=== PATIENT | male | born 1960 | race African-American/Black ===

== ENCOUNTER 2019-02-19 13:39 | Inpatient (IN) ==
[~2019-02-19 13:39] MED LIST: *HR* Etomidate 20 MG/10 ML AMPUL IVP ONE; *HR* Rocuronium Bromide 100 MG/10 ML VIAL IVC ONE
[2019-02-19] MEDS ORDERED: 0.9 % Sodium Chloride 2,000 ML ONE (13:42)
[2019-02-19] MEDS ORDERED: 0.9 % Sodium Chloride 1,000 ML IVC ONE ×3 (13:44→22:21)
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
[2019-02-19] MEDS: 0.9 % Sodium Chloride 2,000 ML IVC ONE ×2 (13:52→14:48)
[2019-02-19 14:03] LABS: ABG Base Excess -6 mEq/L (-2 to 3); ABG HCO3 20 mEq/L (21-27); ABG Oxygen Saturation 99 % (95-98); ABG PCO2 39 mmHg (35-45); ABG PH 7.31 pH Units (7.32-7.45); ABG PO2 170 mmHg (85-104); ABG TCO2 21 mEq/L (20-26)
[2019-02-19 14:11] LABS: Hematocrit 48.9 % (37.5-50.1); Hemoglobin 15.9 g/dL (12.9-16.9); Immature Granulocytes % 0.5 % (0-4); Lymphocytes % 7.7 %; Mean Corpuscular HGB Conc 32.5 g/dL (31.6-35.5); Mean Corpuscular Hemoglobin 31.6 pg (28.0-33.3); Mean Corpuscular Volume 97.2 fL (83.0-100.0); Mean Platelet Volume 10.5 fL (9.4-12.4); Monocytes % 4.9 %; Platelet Count 175 K/mcL (140-400); Red Blood Count 5.03 M/mcL (4.19-5.50); Red Cell Distribution Width 14.3 % (11.5-14.5); Segmented Neutrophils % 86.7 %; White Blood Count 12.9 K/mcL (4.3-11.1)
[2019-02-19 14:12] LABS: Basophils % 0.2 %; Monocytes # 0.6 K/mcL (0.0-1.3); Neutrophils # 11.2 K/mcL (1.6-8.9)
[2019-02-19 14:17] LABS: INR 1.4; Prothrombin Time 15.8 Seconds (9.4-12.1)
[2019-02-19] MEDS ORDERED: Acetaminophen 650 MG RECTAL SUPP RC ONE (14:18)
[2019-02-19 14:19] LABS: Activated Partial Thrombo Time 33.6 Seconds (26.0-36.0)
[2019-02-19] MEDS ORDERED: Thiamine (B-1) 100 MG, Folic Acid 1 MG, MVI, adult with vitamin K 10 ML in 0.9 % Sodi... IVPB ONE (14:20)
[2019-02-19] MEDS ORDERED: Piperacillin/Tazobactam 3.375 GM in Water for inj. (sterile) 20 ML IVP ONE (14:25)
[2019-02-19] MEDS ORDERED: 0.9 % Sodium Chloride 1,000 ML ONE (14:26)
[2019-02-19] MEDS ORDERED: Piperacillin/Tazobactam 3.375 GM in 0.9 % Sodium Chloride Mini Bag 100 ML IVPB ONE (14:28)
[2019-02-19] MEDS ORDERED: D5% in Water 250 ML ONE (14:33)
[2019-02-19] MEDS ORDERED: *HR* Norepinephrine 4 MG/4 ML VIAL IVC ONE (14:33)
[2019-02-19 14:35] LABS: Troponin I 0.77 ng/mL (< 0.04)
[2019-02-19] MEDS ORDERED: *HR* Heparin 5,000 UNIT/ML VIAL IVP PRN ×2 (14:53)
[2019-02-19] MEDS ORDERED: *HR* Heparin 5,000 UNIT/ML VIAL IVP ONE (14:53)
[2019-02-19 15:04] LABS: Sodium 138 mEq/L (136-145)
[2019-02-19 15:05] LABS: Alanine Aminotransferase 1738 Units/L (7-52); Albumin/Globulin Ratio 0.7 (1.1-2.2); Alkaline Phosphatase 79 Units/L (34-104); Aspartate Amino Transferase > 3000 Units/L (13-39); BUN/Creatinine Ratio 13 (6-26); Bilirubin,Direct 1.5 mg/dL (0.0-0.2); Bilirubin,Indirect 1.7 mg/dL (0.0-1.2); Bilirubin,Total 3.2 mg/dL (0.3-1.0); Blood Urea Nitrogen 91 mg/dL (6-20); Calcium 7.9 mg/dL (8.6-10.3); Carbon Dioxide 23 mEq/L (23-29); Chloride 87 mEq/L (98-107); Globulin 4.2 g/dL (2.4-3.5); Glucose 124 mg/dL (70-105); Lipase 113 Units/L (11-82); Magnesium 2.5 mg/dL (1.6-2.6); Osmolality,Calculated 315 (280-300); Phosphorous 10.5 mg/dL (2.7-4.5); Potassium 5.2 mEq/L (3.5-5.1); Total Protein 7.2 g/dL (6.4-8.9); eGFR For African Americans 10 (> 60); eGFR For Non-African Americans 8 (> 60)
--- NOTE | 2019-02-19 15:05 | Emergency Department Note ---
Disposition Clinical Impression: Septic shock, Hepatorenal failure Disposition: Admitted As Inpatient Condition: Critical Referrals: NONE,PCP [Primary Care Provider] - Forms: ED Satisfaction Letter Time of Disposition: 15:06 General Adult HPI - General Chief complaint: ED Shortness of Breath/Dyspnea Stated complaint: possible dehydration Time Seen by Provider: 02/19/19 13:42 Source: patient, EMS Mode of arrival: EMS Limitations: altered mental status - History of Present Illness Pain Scale: 0 Treatments Prior to Arrival: none - Related Data Home Medications Medication Instructions Recorded Confirmed No Known Home Drugs 02/19/19 02/19/19 Allergies Allergy/AdvReac Type Severity Reaction Status Date / Time No Known Allergies Allergy Verified 05/08/15 19:12 Past Medical History - Past Medical History Medical history: Reports: DVT, other Surgical history: Reports: no surgical history Psychiatric history: Reports: no psych history - Social History Smoking Status: Current every day smoker Smokeless Tobacco Status: No Alcohol use: Reports: heavy, recent Drug use: Reports: none Physical Exam - General Limitations: altered mental status General appearance: alert, in no apparent distress Course - Consultations Consultation #1: discussed case with Dr. Clifton, who agrees patient will likley need intubated. HE has also recommends D/C the heparin therapy at this time and also to give solumedrol therapy. We have discused in room that his current code status is FULL CODE, and he has otherwise agreed to intubation. Time: 15:57 Vital Signs Temperature 100.4 F H 02/19/19 13:40 Pulse Rate 124 02/19/19 13:40 Respiratory Rate 28 02/19/19 13:40 Blood Pressure 82/50 02/19/19 13:40 O2 Sat by Pulse Oximetry 100 02/19/19 13:40 Temperature 98.9 F 02/19/19 15:23 Pulse Rate 116 02/19/19 15:23 Respiratory Rate 16 02/19/19 15:23 Blood Pressure 94/55 02/19/19 15:23 O2 Sat by Pulse Oximetry 98 02/19/19 15:23 Oxygen Delivery Oxygen Delivery Oximizer Medical Decision Making - Lab Data Result diagrams: 02/19/19 13:50 02/19/19 13:50 Lab Results 02/19/19 02/19/19 02/19/19 Range/Units 13:50 13:50 13:50 WBC 12.9 H (4.3-11.1) K/mcL RBC 5.03 (4.19-5.50) M/mcL Hgb 15.9 (12.9-16.9) g/dL Hct 48.9 (37.5-50.1) % MCV 97.2 (83.0-100.0) fL MCH 31.6 (28.0-33.3) pg MCHC 32.5 (31.6-35.5) g/dL RDW 14.3 (11.5-14.5) % Plt Count 175 (140-400) K/mcL MPV 10.5 (9.4-12.4) fL Immature Gran % 0.5 (0-4) % Seg Neutrophils % 86.7 % Lymphocytes % 7.7 % Monocytes % 4.9 % Eosinophils % 0.0 % Basophils % 0.2 % Neutrophils # 11.2 H (1.6-8.9) K/mcL Lymphocytes # 1.0 (0.6-4.6) K/mcL Monocytes # 0.6 (0.0-1.3) K/mcL Eosinophils # 0.0 (0.0-0.6) K/mcL Basophils # 0.0 (0.0-0.2) K/mcL PT 15.8 H (9.4-12.1) Seconds INR 1.4 APTT 33.6 (26.0-36.0) Seconds Heparin Anti-Xa, Unfract 0.00 L (0.30-0.70) IU/mL Sample Site ABG pH (7.32-7.45) pH Units ABG pCO2 (35-45) mmHg ABG pO2 (85-104) mmHg ABG HCO3 (21-27) mEq/L ABG Total CO2 (20-26) mEq/L ABG O2 Saturation (95-98) % ABG Base Excess (-2 to 3) mEq/L Johnny Test O2 Delivery Device Inspired O2 (1-15=lpm [id number]=%) Sodium 138 (136-145) mEq/L Potassium 5.2 H (3.5-5.1) mEq/L Chloride 87 L (98-107) mEq/L Carbon Dioxide 23 (23-29) mEq/L BUN 91 H (6-20) mg/dL Creatinine 6.85 H (0.70-1.30) mg/dL Est GFR ( Amer) 10 L (> 60) Est GFR (Non-Af Amer) 8 L (> 60) BUN/Creatinine Ratio 13 (6-26) Glucose 124 H (70-105) mg/dL Calculated Osmolality 315 H (280-300) Lactic Acid (0.5-2.2) mmol/L Calcium 7.9 L (8.6-10.3) mg/dL Phosphorus 10.5 H (2.7-4.5) mg/dL Magnesium 2.5 (1.6-2.6) mg/dL Total Bilirubin 3.2 H (0.3-1.0) mg/dL Direct Bilirubin 1.5 H (0.0-0.2) mg/dL Indirect Bilirubin 1.7 H (0.0-1.2) mg/dL AST > 3000 H (13-39) Units/L ALT 1738 H (7-52) Units/L Alkaline Phosphatase 79 (34-104) Units/L Troponin I 0.77 H* (< 0.04) ng/mL B-Natriuretic Peptide (Less than 100) pg/mL Serum Total Protein 7.2 (6.4-8.9) g/dL Albumin 3.0 L (3.5-5.7) g/dL Globulin 4.2 H (2.4-3.5) g/dL Albumin/Globulin Ratio 0.7 L (1.1-2.2) Lipase 113 H (11-82) Units/L Ur Specimen Adequacy Urine Color (Yellow) Urine Clarity (Clear) Urine pH (5.0-8.0) pH Units Ur Specific [place] (1.010-1.025) Urine Protein (Neg-Trace) mg/dL Urine Glucose (UA) (Normal) mg/dL Urine Ketones (Negative) mg/dL Urine Blood (Negative) Urine Nitrite (Negative) Urine Bilirubin (Negative) Urine Urobilinogen (Normal) mg/dL Ur Leukocyte Esterase (Negative) Urine Microscopic RBC (0-3) per hpf Urine Microscopic WBC (0-3) per hpf Ur Squamous Epith Cells (None-Few) per lpf Urine Bacteria (None-Few) per hpf Hyaline Casts Urine Yeast Ur Culture Indicated? (NO) 07/01/19 07/01/19 07/01/19 Range/Units 13:50 13:50 13:59 WBC (4.3-11.1) K/mcL RBC (4.19-5.50) M/mcL Hgb (12.9-16.9) g/dL Hct (37.5-50.1) % MCV (83.0-100.0) fL MCH (28.0-33.3) pg MCHC (31.6-35.5) g/dL RDW (11.5-14.5) % Plt Count (140-400) K/mcL MPV (9.4-12.4) fL Immature Gran % (0-4) % Seg Neutrophils % % Lymphocytes % % Monocytes % % Eosinophils % % Basophils % % Neutrophils # (1.6-8.9) K/mcL Lymphocytes # (0.6-4.6) K/mcL Monocytes # (0.0-1.3) K/mcL Eosinophils # (0.0-0.6) K/mcL Basophils # (0.0-0.2) K/mcL PT (9.4-12.1) Seconds INR APTT (26.0-36.0) Seconds Heparin Anti-Xa, Unfract (0.30-0.70) IU/mL Sample Site R Radial ABG pH 7.31 L (7.32-7.45) pH Units ABG pCO2 39 (35-45) mmHg ABG pO2 170 H (85-104) mmHg ABG HCO3 20 L (21-27) mEq/L ABG Total CO2 21 (20-26) mEq/L ABG O2 Saturation 99 H (95-98) % ABG Base Excess -6 L (-2 to 3) mEq/L Johnny Test N/A O2 Delivery Device NRB Inspired O2 100.0 (1-15=lpm [id number]=%) Sodium (136-145) mEq/L Potassium (3.5-5.1) mEq/L Chloride (98-107) mEq/L Carbon Dioxide (23-29) mEq/L BUN (6-20) mg/dL Creatinine (0.70-1.30) mg/dL Est GFR ( Amer) (> 60) Est GFR (Non-Af Amer) (> 60) BUN/Creatinine Ratio (6-26) Glucose (70-105) mg/dL Calculated Osmolality (280-300) Lactic Acid 9.3 H* (0.5-2.2) mmol/L Calcium (8.6-10.3) mg/dL Phosphorus (2.7-4.5) mg/dL Magnesium (1.6-2.6) mg/dL Total Bilirubin (0.3-1.0) mg/dL Direct Bilirubin (0.0-0.2) mg/dL Indirect Bilirubin (0.0-1.2) mg/dL AST (13-39) Units/L ALT (7-52) Units/L Alkaline Phosphatase (34-104) Units/L Troponin I (< 0.04) ng/mL B-Natriuretic Peptide 3331 H (Less than 100) pg/mL Serum Total Protein (6.4-8.9) g/dL Albumin (3.5-5.7) g/dL Globulin (2.4-3.5) g/dL Albumin/Globulin Ratio (1.1-2.2) Lipase (11-82) Units/L Ur Specimen Adequacy Urine Color (Yellow) Urine Clarity (Clear) Urine pH (5.0-8.0) pH Units Ur Specific [place] (1.010-1.025) Urine Protein (Neg-Trace) mg/dL Urine Glucose (UA) (Normal) mg/dL Urine Ketones (Negative) mg/dL Urine Blood (Negative) Urine Nitrite (Negative) Urine Bilirubin (Negative) Urine Urobilinogen (Normal) mg/dL Ur Leukocyte Esterase (Negative) Urine Microscopic RBC (0-3) per hpf Urine Microscopic WBC (0-3) per hpf Ur Squamous Epith Cells (None-Few) per lpf Urine Bacteria (None-Few) per hpf Hyaline Casts Urine Yeast Ur Culture Indicated? (NO) 02/19/19 Range/Units 15:10 WBC (4.3-11.1) K/mcL RBC (4.19-5.50) M/mcL Hgb (12.9-16.9) g/dL Hct (37.5-50.1) % MCV (83.0-100.0) fL MCH (28.0-33.3) pg MCHC (31.6-35.5) g/dL RDW (11.5-14.5) % Plt Count (140-400) K/mcL MPV (9.4-12.4) fL Immature Gran % (0-4) % Seg Neutrophils % % Lymphocytes % % Monocytes % % Eosinophils % % Basophils % % Neutrophils # (1.6-8.9) K/mcL Lymphocytes # (0.6-4.6) K/mcL Monocytes # (0.0-1.3) K/mcL Eosinophils # (0.0-0.6) K/mcL Basophils # (0.0-0.2) K/mcL PT (9.4-12.1) Seconds INR APTT (26.0-36.0) Seconds Heparin Anti-Xa, Unfract (0.30-0.70) IU/mL Sample Site ABG pH (7.32-7.45) pH Units ABG pCO2 (35-45) mmHg ABG pO2 (85-104) mmHg ABG HCO3 (21-27) mEq/L ABG Total CO2 (20-26) mEq/L ABG O2 Saturation (95-98) % ABG Base Excess (-2 to 3) mEq/L Johnny Test O2 Delivery Device Inspired O2 (1-15=lpm [id number]=%) Sodium (136-145) mEq/L Potassium (3.5-5.1) mEq/L Chloride (98-107) mEq/L Carbon Dioxide (23-29) mEq/L BUN (6-20) mg/dL Creatinine (0.70-1.30) mg/dL Est GFR ( Amer) (> 60) Est GFR (Non-Af Amer) (> 60) BUN/Creatinine Ratio (6-26) Glucose (70-105) mg/dL Calculated Osmolality (280-300) Lactic Acid (0.5-2.2) mmol/L Calcium (8.6-10.3) mg/dL Phosphorus (2.7-4.5) mg/dL Magnesium (1.6-2.6) mg/dL Total Bilirubin (0.3-1.0) mg/dL Direct Bilirubin (0.0-0.2) mg/dL Indirect Bilirubin (0.0-1.2) mg/dL AST (13-39) Units/L ALT (7-52) Units/L Alkaline Phosphatase (34-104) Units/L Troponin I (< 0.04) ng/mL B-Natriuretic Peptide (Less than 100) pg/mL Serum Total Protein (6.4-8.9) g/dL Albumin (3.5-5.7) g/dL Globulin (2.4-3.5) g/dL Albumin/Globulin Ratio (1.1-2.2) Lipase (11-82) Units/L Ur Specimen Adequacy See below A Urine Color Dark Yellow (Yellow) Urine Clarity Turbid A (Clear) Urine pH 5.0 (5.0-8.0) pH Units Ur Specific [place] 1.027 H (1.010-1.025) Urine Protein >=1000 H (Neg-Trace) mg/dL Urine Glucose (UA) Normal (Normal) mg/dL Urine Ketones 15 H (Negative) mg/dL Urine Blood Large H (Negative) Urine Nitrite Negative (Negative) Urine Bilirubin Moderate H (Negative) Urine Urobilinogen 2.0 H (Normal) mg/dL Ur Leukocyte Esterase Small H (Negative) Urine Microscopic RBC 5-15 H (0-3) per hpf Urine Microscopic WBC TNTC H (0-3) per hpf Ur Squamous Epith Cells Many H (None-Few) per lpf Urine Bacteria Few (None-Few) per hpf Hyaline Casts Test Not Performed Urine Yeast Test Not Performed Ur Culture Indicated? YES A (NO) Attestation Statement - Attestation Attestation: I reviewed the residents documentation and agree with the residents assessment and plan of care. I have personally had face to face time with the patient. (Brief History, Brief Exam, and MDM) I personally supervised and was present for the hoyt/critical portions of the following procedures completed by the resident: EKG 58 year old male presents to the ED with complaints of altered mental status and is otherwise an alcoholic and it appears that he is in septic shock from pneumonia. Patinet states that he has been feeling feverish and otherwise unwell. Patient willl need ICU admission and we will place a central line and start pressors and aggressive IV ABX for therapy
[2019-02-19 15:24] LABS: Bilirubin,Urine Moderate (Negative); Blood,Urine Large (Negative); Clarity,Urine Turbid (Clear); Glucose,Urine (UA) Normal (Normal); Ketones,Urine 15 mg/dL (Negative); Leukocyte Esterase,Urine Small (Negative); Nitrite,Urine Negative (Negative); Protein,Urine >=1000 mg/dL (Neg-Trace); Specific Gravity,Urine 1.027 (1.010-1.025); Squamous Epithelial Cell,Urine Many per lpf (None-Few); WBC,Urine TNTC per hpf (0-3)
[2019-02-19] MEDS ORDERED: Calcium Gluconate 2,000 MG in 0.9 % Sodium Chloride 100 ML IVPB ONE (15:24)
[2019-02-19 15:25] LABS: Color,Urine Dark Yellow (Yellow)
[2019-02-19] MEDS ORDERED: Azithromycin 500 MG in D5% in Water 250 ML IVPB ONE (15:28)
[2019-02-19 15:37] LABS: Bacteria,Urine Few per hpf (None-Few)
[2019-02-19] MEDS: Heparin 25,000 UNIT/250 ML D5W 25,000 UNIT/250 ML IV.SOLN IVC SCH ×2 (15:38→15:54)
[2019-02-19] MEDS ORDERED: methylPREDNISolone 125 MG/2 ML VIAL IVP ONE (15:52)
[2019-02-19] MEDS: Norepinephrine 4 MG in D5% in Water 250 ML IVC SCH (15:54)
[2019-02-19] MEDS ORDERED: *HR* Etomidate 20 MG/10 ML AMPUL IVP ONE (16:05)
[2019-02-19] MEDS ORDERED: *HR* Rocuronium Bromide 50 MG/5 ML VIAL IVP ONE (16:05)
[2019-02-19] MEDS ORDERED: *HR* FentaNYL (PF) 100 MCG/2 ML VIAL ONE (16:11)
[2019-02-19] MEDS ORDERED: *HR* Midazolam HCl 2 MG/2 ML VIAL IVP ONE (16:25)
[2019-02-19] MEDS ORDERED: *HR* FentaNYL (PF) 100 MCG/2 ML VIAL IVP ONE (16:25)
[2019-02-19] MEDS: FentaNYL (PF) 1,000 MCG in 0.9 % Sodium Chloride 80 ML IVC SCH ×2 (16:31→22:56)
--- NOTE | 2019-02-19 16:44 | Pulmonology History & Physical ---
<Minnie Patrick M - Last Filed: 02/19/19 17:56> Date of Encounter: 02/19/19 Time of Encounter: 16:41 Assessment and Plan (1) Septic shock Status: Acute * At this point likely source of infection is respiratory * Chest CT shows emphysema with right lower lobe pneumonia with left upper lobe scarring and cardiomegaly with small pericardial effusion * CT abdomen/pelvis shows no acute intra-abdominal pathology at this time * CT head shows no evidence of acute intracranial pathology * Blood and urine cultures pending at this time, will follow * Patient requiring pressure support with Levophed, we will continue to monitor and titrate as is necessary * IV sedation with fentanyl and Versed, will switch to propofol should the patient's pressure stabilize given decreased clearance of Versed with impaired renal function * Continue IV vancomycin and Zosyn as well as azithromycin until susceptibilities are obtained * Lactate 9.3 upon arrival, repeat 4 hours later found to be 5.6, patient did receive 3000mL fluid bolus in the emergency department (2) Hepatorenal failure Status: Acute * Nephrology consulted and following, appreciate their recommendations, no significant hyperkalemia but creatinine elevated to 6.85, patient is not a chronic hemodialysis patient, had normal creatinine in 2018 * Strict I's and O's and daily weights * Acetaminophen level not significantly elevated, hepatitis panel nonreactive for hepatitis A, B and C * Urine drug screen pending * AST greater than 3000, ALT 1738, only previous laboratory evaluation of LFTs back in 2014 shows normal levels, will request records from [facility] * Patient given 125 mg IV methylprednisolone in the emergency department * Daniel's discriminate function calculated with resultant 24.8 therefore will not continue glucocorticoid therapy * Electrolyte protocol orders Pinkyey's Discriminant Function for Alcoholic Hepatitis from [facility] on 02/19/2019 All calculations should be rechecked by clinician prior to use RESULT SUMMARY: 24.8 points Good Prognosis. Discriminant Function > 32 points indicates poor prognosis and patient may benefit from glucocorticoid therapy. INPUTS: PT > 15.8 sec PT control/reference level > 11.1 sec Total bilirubin > 3.2 mg/dL (3) Acute respiratory failure Status: Acute * Patient intubated and sedated in the emergency department secondary to declining respiratory status * Likely secondary to pneumonia as above * Repeat chest x-ray in the morning * Repeat ABG timed 2200 tonight and 0400 tomorrow * Ventilator bundle in place * IV PPI for GI prophylaxis Qualifiers: Respiratory failure complication: unspecified whether with hypoxia or hypercapnia Qualified Code(s): J96.00 - Acute respiratory failure, unspecified whether with hypoxia or hypercapnia (4) Elevated troponin I level Status: Acute * Likely acute respiratory failure and demand ischemia cause elevated troponin of 0.77 the patient did have a seat depressions in the emergency department, cardiology consult did and appreciate their recommendations * Holding heparin at this time given impaired renal function (5) Alcohol abuse Status: Acute * No known history of cirrhosis per patient * Will continue with daily thiamine, folate, and B6 supplementation * IV sedation with Versed for now History of Present Illness HPI: Mr. Blankenship is a 58 year old male who initially presented to the emergency department on 02/19/19 secondary to shortness of breath and altered mental status. The patient states he has had generalized malaise for the last 3 days with increasing fatigue. Patient is a chronic alcoholic, last drink per the patient 7 days ago but per family proximally 3 days ago. Denies any history of hepatitis or cirrhosis but does have history of pulmonary embolism per family back in 2017. The patient denies any pain at this point. Past Med Surg Social Fam HX - Past Medical History Attestation: Yes The following information was validated with the patient. Medical history: DVT, pulmonary embolus, other Additional medical history: gout Psychiatric history: no psych history - Past Surgical History Surgical History: no surgical history - Social History Smoking Status: Current every day smoker Smokeless Tobacco Status: No Alcohol use: heavy, recent Drug use: none Medications and Allergies No Known Home Drugs 02/19/19 [History] Allergy/AdvReac Type Severity Reaction Status Date / Time No Known Allergies Allergy Verified 05/08/15 19:12 All Systems: The remainder of the systems were reviewed and are negative - Constitutional Constitutional: weakness, no headache(s) - EENT Nose, mouth and throat: no dizziness - Cardiovascular Cardiovascular: dyspnea, no chest pain - Respiratory Respiratory: dyspnea, no wheezing - Gastrointestinal Gastrointestinal: no abdominal pain - Genitourinary Genitourinary: no difficulty urinating, no dysuria - Musculoskeletal Musculoskeletal: weakness, no joint pain - Integumentary Integumentary: no rash - Neurological Neurological: no dizziness, no focal weakness Physical Examination Vital Signs: Vital Signs, Last 4 Hours Temp Pulse Resp BP Pulse Ox 02/19/19 16:30 118 14 91/64 97 02/19/19 16:11 123 22 108/65 100 02/19/19 16:00 116 20 92/65 93 02/19/19 15:23 98.9 F 116 16 94/55 98 02/19/19 15:06 114 22 96/29 99 02/19/19 14:45 120 22 90/50 02/19/19 14:25 119 22 70/42 97 02/19/19 14:02 121 22 93/40 98 02/19/19 13:56 117 22 87/49 100 02/19/19 13:54 99 02/19/19 13:40 100.4 F H 124 28 82/50 100 General appearance: alert Eyes: nonicteric Effort: mildly labored Auscultation: bilateral: rales (R>L) Cardiovascular: regular rate and rhythm Gastrointestinal: normoactive bowel sounds, non-tender Integumentary: normal Extremities: no cyanosis Musculoskeletal: no deformities normal mental status, non-focal exam mood appropriate, affect normal Results - Laboratory Findings CBC and BMP: 02/19/19 13:50 02/19/19 13:50 ABG ABG pH 7.31 pH Units (7.32-7.45) L 02/19/19 13:59 ABG pCO2 39 mmHg (35-45) 02/19/19 13:59 ABG pO2 170 mmHg (85-104) H 02/19/19 13:59 ABG O2 Saturation 99 % (95-98) H 02/19/19 13:59 PT/INR, D-dimer PT 15.8 Seconds (9.4-12.1) H 02/19/19 13:50 Abnormal lab findings: Abnormal lab results WBC 12.9 K/mcL (4.3-11.1) H 02/19/19 13:50 11.2 K/mcL (1.6-8.9) H 02/19/19 13:50 PT 15.8 Seconds (9.4-12.1) H 02/19/19 13:50 Heparin Anti-Xa, Unfract 0.00 IU/mL (0.30-0.70) L 02/19/19 13:50 ABG pH 7.31 pH Units (7.32-7.45) L 02/19/19 13:59 ABG pO2 170 mmHg (85-104) H 02/19/19 13:59 ABG HCO3 20 mEq/L (21-27) L 02/19/19 13:59 ABG O2 Saturation 99 % (95-98) H 02/19/19 13:59 ABG Base Excess -6 mEq/L (-2 to 3) L 02/19/19 13:59 Potassium 5.2 mEq/L (3.5-5.1) H 02/19/19 13:50 Chloride 87 mEq/L (98-107) L 02/19/19 13:50 BUN 91 mg/dL (6-20) H 02/19/19 13:50 6.85 mg/dL (0.70-1.30) H 02/19/19 13:50 Est GFR ( Amer) 10 (> 60) L 02/19/19 13:50 Est GFR (Non-Af Amer) 8 (> 60) L 02/19/19 13:50 Glucose 124 mg/dL (70-105) H 02/19/19 13:50 315 (280-300) H 02/19/19 13:50 Lactic Acid 9.3 mmol/L (0.5-2.2) H* 02/19/19 13:50 Calcium 7.9 mg/dL (8.6-10.3) L 02/19/19 13:50 Phosphorus 10.5 mg/dL (2.7-4.5) H 02/19/19 13:50 3.2 mg/dL (0.3-1.0) H 02/19/19 13:50 1.5 mg/dL (0.0-0.2) H 02/19/19 13:50 1.7 mg/dL (0.0-1.2) H 02/19/19 13:50 AST > 3000 Units/L (13-39) H 02/19/19 13:50 ALT 1738 Units/L (7-52) H 02/19/19 13:50 0.77 ng/mL (< 0.04) H* 02/19/19 13:50 B-Natriuretic Peptide 3331 pg/mL (Less than 100) H 02/19/19 13:50 3.0 g/dL (3.5-5.7) L 02/19/19 13:50 4.2 g/dL (2.4-3.5) H 02/19/19 13:50 0.7 (1.1-2.2) L 02/19/19 13:50 113 Units/L (11-82) H 02/19/19 13:50 Ur Specimen Adequacy See below A 02/19/19 15:10 Turbid (Clear) A 02/19/19 15:10 Ur Specific [place] 1.027 (1.010-1.025) H 02/19/19 15:10 >=1000 mg/dL (Neg-Trace) H 02/19/19 15:10 15 mg/dL (Negative) H 02/19/19 15:10 Large (Negative) H 02/19/19 15:10 Moderate (Negative) H 02/19/19 15:10 2.0 mg/dL (Normal) H 02/19/19 15:10 Ur Leukocyte Esterase Small (Negative) H 02/19/19 15:10 5-15 per hpf (0-3) H 02/19/19 15:10 TNTC per hpf (0-3) H 02/19/19 15:10 Ur Squamous Epith Cells Many per lpf (None-Few) H 02/19/19 15:10 Ur Culture Indicated? YES (NO) A 02/19/19 15:10 <Xochitl Nuñez M - Last Filed: 02/22/19 14:35> Date of Encounter: 02/19/19 History of Present Illness HPI: Mr. Blankenship is a 58 year old male All Systems: The remainder of the systems were reviewed and are negative Physical Examination Vital Signs: Vital Signs, Last 4 Hours Temp Pulse Resp BP Pulse Ox 02/19/19 16:30 118 14 91/64 97 02/19/19 16:11 123 22 108/65 100 02/19/19 16:00 116 20 92/65 93 02/19/19 15:23 98.9 F 116 16 94/55 98 02/19/19 15:06 114 22 96/29 99 02/19/19 14:45 120 22 90/50 02/19/19 14:25 119 22 70/42 97 02/19/19 14:02 121 22 93/40 98 02/19/19 13:56 117 22 87/49 100 02/19/19 13:54 99 02/19/19 13:40 100.4 F H 124 28 82/50 100 Results - Laboratory Findings CBC and BMP: 02/21/19 04:15 02/21/19 04:15 ABG ABG pH 7.31 pH Units (7.32-7.45) L 02/19/19 13:59 ABG pCO2 39 mmHg (35-45) 02/19/19 13:59 ABG pO2 170 mmHg (85-104) H 02/19/19 13:59 ABG O2 Saturation 99 % (95-98) H 02/19/19 13:59 PT/INR, D-dimer PT 15.8 Seconds (9.4-12.1) H 02/19/19 13:50 Abnormal lab findings: Abnormal lab results WBC 12.9 K/mcL (4.3-11.1) H 02/19/19 13:50 11.2 K/mcL (1.6-8.9) H 02/19/19 13:50 PT 15.8 Seconds (9.4-12.1) H 02/19/19 13:50 Heparin Anti-Xa, Unfract 0.00 IU/mL (0.30-0.70) L 02/19/19 13:50 ABG pH 7.31 pH Units (7.32-7.45) L 02/19/19 13:59 ABG pO2 170 mmHg (85-104) H 02/19/19 13:59 ABG HCO3 20 mEq/L (21-27) L 02/19/19 13:59 ABG O2 Saturation 99 % (95-98) H 02/19/19 13:59 ABG Base Excess -6 mEq/L (-2 to 3) L 02/19/19 13:59 Potassium 5.2 mEq/L (3.5-5.1) H 02/19/19 13:50 Chloride 87 mEq/L (98-107) L 02/19/19 13:50 BUN 91 mg/dL (6-20) H 02/19/19 13:50 6.85 mg/dL (0.70-1.30) H 02/19/19 13:50 Est GFR ( Amer) 10 (> 60) L 02/19/19 13:50 Est GFR (Non-Af Amer) 8 (> 60) L 02/19/19 13:50 Glucose 124 mg/dL (70-105) H 02/19/19 13:50 315 (280-300) H 02/19/19 13:50 Lactic Acid 9.3 mmol/L (0.5-2.2) H* 02/19/19 13:50 Calcium 7.9 mg/dL (8.6-10.3) L 02/19/19 13:50 Phosphorus 10.5 mg/dL (2.7-4.5) H 02/19/19 13:50 3.2 mg/dL (0.3-1.0) H 02/19/19 13:50 1.5 mg/dL (0.0-0.2) H 02/19/19 13:50 1.7 mg/dL (0.0-1.2) H 02/19/19 13:50 AST > 3000 Units/L (13-39) H 02/19/19 13:50 ALT 1738 Units/L (7-52) H 02/19/19 13:50 0.77 ng/mL (< 0.04) H* 02/19/19 13:50 B-Natriuretic Peptide 3331 pg/mL (Less than 100) H 02/19/19 13:50 3.0 g/dL (3.5-5.7) L 02/19/19 13:50 4.2 g/dL (2.4-3.5) H 02/19/19 13:50 0.7 (1.1-2.2) L 02/19/19 13:50 113 Units/L (11-82) H 02/19/19 13:50 Ur Specimen Adequacy See below A 02/19/19 15:10 Turbid (Clear) A 02/19/19 15:10 Ur Specific [place] 1.027 (1.010-1.025) H 02/19/19 15:10 >=1000 mg/dL (Neg-Trace) H 02/19/19 15:10 15 mg/dL (Negative) H 02/19/19 15:10 Large (Negative) H 02/19/19 15:10 Moderate (Negative) H 02/19/19 15:10 2.0 mg/dL (Normal) H 02/19/19 15:10 Ur Leukocyte Esterase Small (Negative) H 02/19/19 15:10 5-15 per hpf (0-3) H 02/19/19 15:10 TNTC per hpf (0-3) H 02/19/19 15:10 Ur Squamous Epith Cells Many per lpf (None-Few) H 02/19/19 15:10 Ur Culture Indicated? YES (NO) A 02/19/19 15:10 - Attending Attestation I examined this patient and my medical decision-making was reviewed with the Resident Physician. I agree with the documented findings, disposition and treatment plan as described except to the extent set forth below. Patient seen and examined. I was called by ER physician to evaluate this patient and he was seen and examined in ER. He can give some history and he is clearly in acute respiratory distress. Labs, radiology, chart personally reviewed. Agree with resident's history and physical, assessment, plan with following co mments: LEAK DETECTOR: Patient follows commands, he is lethargic and concern is alcohol withdrawal and DT. He will be on multivitamins and once he is intubated, he will on sedation and that will help for alcohol withdrawal. Pulmonary: Patient clearly in acute distress and with severe metabolic acidosis, he is tachypnic and with his mental status now he is lethargic discussed with ER physician and with his hemodynamic is not stale, we discussed that patient needs to protect his airway and reviewed his CXR, suspect he has aspiration pneumonia. With his sepsis, there is a possibility he could end up with ARDS and patient was intubated. Will check his ABG and have more recommendations. Patient with acute hypoxic respiratory failure and he will be intubated. Cardiovascular: Unstable and with metabolic abnormalities, there is high risk of arrythmias and concern of risk of hyperkalemia and sepsis. GI: Nutrition per dietary and GI prophylaxis per routine. Patient with picture suggestive of acute alcohol hepatitis and will need to calculate DI factor and to start him on steroid. Unfortunately with his active history of alcohol abuse he is not unlikely be going to be candidate for transplant of liver. Heme: DVT prophylaxis per routine and concern of bledding and coagulopathy. ID: Continue antibiotics and plan to de-escalation. Patient with septic shock and treated for septic shock with fluid resuscitation. Renal; urine out put and renal function reviewed. Patient with acute renal failure and nephrology consulted. Patient with electrolytes abnormalities and most likely will need renal replacement therapy. Endorcine: blood glucose is monitored, will most likely need insulin coverage. Lines: all lines checked and no evidence of infections Skin: skin care to prevent pressure ulcers per nursing routine care Dispo: ICU Code: Full. Prognosis: Very poor prognosis with high mortality rate. I spent 65 min of Critical Care time with this patient. It involved decision making of high complexity to assess, manipulate, and support vital organ system failure and/or to prevent further life threatening deterioration of the patient's condition. The time involved in the performance of separately r eportable procedures was not counted toward critical care time.
[2019-02-19 16:58] LABS: Acetaminophen < 10 mcg/mL (10-20)
[2019-02-19 17:15] LABS: Hepatitis B Surface Antigen Nonreactive (Nonreactive)
[2019-02-19 17:43] LABS: Hepatitis C Virus Antibody Nonreactive (Nonreactive)
[2019-02-19] MEDS ORDERED: Artificial Tears SOLN 15 ML BOTTLE BOTH EYES PRN (17:43)
[2019-02-19 17:44] LABS: Hepatitis B Core IgM Nonreactive (Nonreactive)
[2019-02-19 17:45] LABS: Hepatitis A Antibody IgM Nonreactive (Nonreactive)
[2019-02-19] MEDS ORDERED: Vancomycin 1 EACH in 0.9 % Sodium Chloride 250 ML IVPB PRN (18:00)
[2019-02-19] MEDS ORDERED: Lactulose Oral Soln 20 GM/30 ML UDC PO ONE (21:05)
[2019-02-19 21:09] LABS: Basophils % 0.2 %; Hematocrit 48.2 % (37.5-50.1); Hemoglobin 15.1 g/dL (12.9-16.9); Immature Granulocytes % 1.2 % (0-4); Lymphocytes # 1.2 K/mcL (0.6-4.6); Mean Corpuscular HGB Conc 31.3 g/dL (31.6-35.5); Mean Corpuscular Hemoglobin 31.6 pg (28.0-33.3); Mean Corpuscular Volume 100.8 fL (83.0-100.0); Mean Platelet Volume 10.7 fL (9.4-12.4); Monocytes # 0.7 K/mcL (0.0-1.3); Monocytes % 4.4 %; Neutrophils # 12.7 K/mcL (1.6-8.9); Platelet Count 145 K/mcL (140-400); Red Blood Count 4.78 M/mcL (4.19-5.50); Red Cell Distribution Width 14.6 % (11.5-14.5); Segmented Neutrophils % 86.2 %; White Blood Count 14.8 K/mcL (4.3-11.1)
[2019-02-19 21:31] LABS: Potassium 6.4 mEq/L (3.5-5.1)
[2019-02-19 22:05] LABS: ABG Base Excess -12 mEq/L (-2 to 3); ABG HCO3 19 mEq/L (21-27); ABG Oxygen Saturation 93 % (95-98); ABG PCO2 61 mmHg (35-45); ABG PO2 92 mmHg (85-104); ABG TCO2 21 mEq/L (20-26); Blood Gas Modality ASSIST CONTROL; Blood Gas PEEP 5 cm H2O; Blood Gas VT 500 cc
[2019-02-19] MEDS ORDERED: Insulin Human Regular 10 UNIT in 0.9 % Sodium Chloride 10 ML IV ONE (22:10)
[2019-02-19] MEDS ORDERED: Albuterol 2.5 MG/3 ML NEBULIZER IH ONE (22:11)
[2019-02-19] MEDS ORDERED: *HR* Dextrose 50 % in Water (Syg) 50 ML SYRINGE IVP ONE (22:15)
[2019-02-19] MEDS ORDERED: Hydrocortisone Sodium Succ 100 MG/2 ML VIAL IVP STA (22:15)
[2019-02-19 22:24] LABS: Amphetamine Screen,Urine Negative ng/mL (Cutoff=1000); Barbiturate Screen,Urine Negative ng/mL (Cutoff=200); Benzodiazepines Screen,Urine Positive ng/mL (Cutoff=200); Cannabinoid Screen,Urine Positive ng/mL (Cutoff = 50); Cocaine Screen,Urine Negative ng/mL (Cutoff= 300); Opiate Screen,Urine Positive ng/mL (Cutoff=300); Phencyclidine Screen,Urine Negative ng/mL (Cutoff=25)
[2019-02-19] MEDS: Calcium Gluconate 1gm/50mL 1 GM/50 ML BAG IVPB SCH (22:48)
[2019-02-19] MEDS: Chlorhexidine Rinse 15 ML MOUTHWASH MM SCH (22:48)
[2019-02-19] MEDS: 0.9 % Sodium Chloride 1,000 ML IVC SCH (22:48)
[2019-02-19] MEDS: Artificial Tears SOLN 15 ML BOTTLE BOTH EYES SCH (23:27)
[2019-02-20] MEDS: Norepinephrine 4 MG in D5% in Water 250 ML IVC SCH (00:06)
[2019-02-20 00:16] LABS: ABG Base Excess -10 mEq/L (-2 to 3); ABG HCO3 18 mEq/L (21-27); ABG Oxygen Saturation 97 % (95-98); ABG PCO2 49 mmHg (35-45); ABG PH 7.18 pH Units (7.32-7.45); ABG PO2 119 mmHg (85-104); ABG TCO2 20 mEq/L (20-26); Blood Gas Modality ASSIST CONTROL; Blood Gas PEEP 5 cm H2O; Blood Gas VT 500 cc
[2019-02-20] MEDS: Calcium Gluconate 1gm/50mL 1 GM/50 ML BAG IVPB SCH (00:27)
[2019-02-20 00:58] LABS: Calcium 6.7 mg/dL (8.6-10.3)
[2019-02-20 02:49] LABS: Acinetobacter baumannii by PCR Not Detected (Not Detect); Candida albicans by PCR Not Detected (Not Detect); Enterobacter cloacae Cmplx PCR Not Detected (Not Detect); Enterobacteriaceae by PCR Not Detected (Not Detect); Enterococcus by PCR Not Detected (Not Detect); Escherichia coli by PCR Not Detected (Not Detect); Klebsiella oxytoca by PCR Not Detected (Not Detect); Klebsiella pneumoniae by PCR Not Detected (Not Detect); Proteus by PCR Not Detected (Not Detect); Pseudomonas aeruginosa by PCR Not Detected (Not Detect); Serratia marcescens by PCR Not Detected (Not Detect); Staphylococcus aureus by PCR Not Detected (Not Detect); Staphylococcus by PCR Not Detected (Not Detect); Streptococcus agalactiae(B)PCR Not Detected (Not Detect); Streptococcus by PCR Not Detected (Not Detect); Streptococcus pneumoniae PCR Not Detected (Not Detect); Streptococcus pyogenes (A) PCR Not Detected (Not Detect)
[2019-02-20 02:50] LABS: Candida glabrata by PCR Not Detected (Not Detect); Candida krusei by PCR Not Detected (Not Detect); Candida parapsilosis by PCR Not Detected (Not Detect); Candida tropicalis by PCR Not Detected (Not Detect)
[2019-02-20] MEDS: Artificial Tears SOLN 15 ML BOTTLE BOTH EYES SCH ×7 (03:00→23:35)
[2019-02-20] MEDS: Norepinephrine 8 MG in D5% in Water 250 ML IVC SCH ×3 (03:52→23:46)
[2019-02-20 04:09] LABS: Basophils # 0.1 K/mcL (0.0-0.2); Basophils % 0.4 %; Hematocrit 46.3 % (37.5-50.1); Immature Granulocytes % 1.6 % (0-4); Lymphocytes # 0.8 K/mcL (0.6-4.6); Lymphocytes % 5.5 %; Mean Corpuscular HGB Conc 32.4 g/dL (31.6-35.5); Mean Corpuscular Hemoglobin 32.2 pg (28.0-33.3); Mean Corpuscular Volume 99.4 fL (83.0-100.0); Mean Platelet Volume 10.9 fL (9.4-12.4); Monocytes # 0.5 K/mcL (0.0-1.3); Monocytes % 3.3 %; Neutrophils # 13.1 K/mcL (1.6-8.9); Platelet Count 137 K/mcL (140-400); Red Blood Count 4.66 M/mcL (4.19-5.50); Red Cell Distribution Width 14.5 % (11.5-14.5); Segmented Neutrophils % 89.2 %; White Blood Count 14.7 K/mcL (4.3-11.1)
[2019-02-20 04:13] LABS: VBG Ionized Calcium 0.76 mmol/L (1.15-1.35)
[2019-02-20 04:26] LABS: Platelet Estimate Slight Decrease (Normal)
[2019-02-20 04:44] LABS: Alanine Aminotransferase 1869 Units/L (7-52); Albumin 2.6 g/dL (3.5-5.7); Albumin/Globulin Ratio 0.8 (1.1-2.2); Alkaline Phosphatase 72 Units/L (34-104); Aspartate Amino Transferase > 3000 Units/L (13-39); BUN/Creatinine Ratio 14 (6-26); Bilirubin,Direct 2.5 mg/dL (0.0-0.2); Bilirubin,Indirect 1.5 mg/dL (0.0-1.2); Blood Urea Nitrogen 90 mg/dL (6-20); Calcium 6.4 mg/dL (8.6-10.3); Carbon Dioxide 18 mEq/L (23-29); Chloride 99 mEq/L (98-107); Globulin 3.1 g/dL (2.4-3.5); Glucose 286 mg/dL (70-105); Magnesium 2.2 mg/dL (1.6-2.6); Osmolality,Calculated 318 (280-300); Phosphorous 10.3 mg/dL (2.7-4.5); Potassium 5.4 mEq/L (3.5-5.1); Sodium 135 mEq/L (136-145); Total Protein 5.7 g/dL (6.4-8.9); eGFR For African Americans 11 (> 60); eGFR For Non-African Americans 9 (> 60)
[2019-02-20 04:48] LABS: ABG Base Excess -12 mEq/L (-2 to 3); ABG HCO3 17 mEq/L (21-27); ABG Oxygen Saturation 96 % (95-98); ABG PCO2 50 mmHg (35-45); ABG PH 7.15 pH Units (7.32-7.45); ABG PO2 104 mmHg (85-104); ABG TCO2 19 mEq/L (20-26); Blood Gas Modality ASSIST CONTROL; Blood Gas PEEP 5 cm H2O; Blood Gas VT 500 cc
[2019-02-20] MEDS: Calcium Gluconate 1gm/50mL 1 GM/50 ML BAG IVPB PRN ×2 (04:49→23:34)
[2019-02-20] MEDS ORDERED: Sodium Bicarbonate 150 MEQ in D5% in Water 1,000 ML IVC SCH (05:15)
[2019-02-20] MEDS ORDERED: Piperacillin/Tazobactam 3.375 GM in 0.9 % Sodium Chloride Mini Bag 100 ML IVPB SCH (06:00)
[2019-02-20] MEDS: Phenylephrine 10 MG in D5% in Water 250 ML IVC SCH ×2 (06:05→18:47)
[2019-02-20] MEDS: Chlorhexidine Rinse 15 ML MOUTHWASH MM SCH ×2 (07:11→20:11)
[2019-02-20] MEDS: 0.9 % Sodium Chloride 1,000 ML IVC SCH (07:12)
--- NOTE | 2019-02-20 07:49 | Pulmonology Progress Note ---
<Minnie Patrick M - Last Filed: 02/20/19 13:47> Date of Encounter: 02/20/19 Time of Encounter: 07:49 Assessment and Plan (1) Septic shock Status: Acute * Chest CT shows emphysema with right lower lobe pneumonia with left upper lobe scarring and cardiomegaly with small pericardial effusion * CT abdomen/pelvis shows no acute intra-abdominal pathology at this time * CT head shows no evidence of acute intracranial pathology * Lactate elevated from 9.3, to 5.6, 5.8, to 4.8, BP not responsive to 3L fluid bolus given in ED * Blood, sputum, and urine cultures pending. Prelimary read of 08/23 BC shows gram positive cocci. At this point likely source of infection is respiratory. Pending sensitivities and final read. * Patient requiring pressure support with Levophed, we will continue to monitor and titrate as is necessary * IV sedation with fentanyl and Versed, will switch to propofol should the patient's pressure stabilize given decreased clearance of Versed with impaired renal function * Continue IV vancomycin and Zosyn until susceptibilities improve. Will discontinue azithromycin today. (2) Hepatorenal failure Status: Acute * Nephrology consulted and following, appreciate their recommendations, overnight developed hyperkalemia up to 6.4 with implementation by night team of normal saline, albuterol, calcium gluconate, Solu-Cortef, insulin and lactulose with improvement to 5.4 * Nephrology to [facility] continuous dialysis today after placement of temporary hemodialysis catheter line by interventional radiology. They request to stop the bicarbonate drip at that time. * Acetaminophen level not significantly elevated, hepatitis panel nonreactive for hepatitis A, B and C * AST greater than 3000, ALT increased to 1869 today * Patient given 125 mg IV methylprednisolone in the emergency department, today T. Bili and PT indicate need for glucocorticoid treatment, will initiate prednisolone 40mg daily and add insulin with accuchecks given expected hyperglycemic response * Electrolyte protocol orders Daniel's Discriminant Function for Alcoholic Hepatitis from [employer] on 02/20/2019 All calculations should be rechecked by clinician prior to use RESULT SUMMARY: 52.3 points Poor Prognosis. Discriminant Function > 32 points indicates poor prognosis and patient may benefit from glucocorticoid therapy. INPUTS: PT > 21.6 sec PT control/reference level > 11.1 sec Total bilirubin > 4 mg/dL (3) Acute respiratory failure Status: Acute * Patient intubated and sedated in the emergency department secondary to declining respiratory status * Likely secondary to pneumonia as above * Repeat chest x-ray this morning shows worsening of the right basilar atele ctasis versus effusion as well as new left-sided basilar atelectasis versus pneumonia, we will continue vancomycin and Zosyn, we will discontinue azithromycin today * MRSA nasal swab negative * ABG early this morning shows metabolic acidosis therefore vent settings were changed and subsequent ABG shows improvement in acidosis with pH up from 7.150-7.26, we will continue to monitor * Ventilator bundle in place * IV PPI for GI prophylaxis Qualifiers: Respiratory failure complication: unspecified whether with hypoxia or hypercapnia Qualified Code(s): J96.00 - Acute respiratory failure, unspecified whether with hypoxia or hypercapnia (4) Elevated troponin I level Status: Acute * Likely acute respiratory failure and demand ischemia causing elevated troponin of 0.77, repeat troponin shows no change overnight * Cardiology consulted and appreciate their recommendations * Holding heparin at this time given impaired renal function and placement of hemodialysis catheter (5) Alcohol abuse Status: Acute * No known history of cirrhosis per patient * Will continue with daily thiamine and folate supplementation * IV sedation with Versed for now * Glucocorticoid initiation for alcoholic hepatitis as above Objective PUL Vital signs: Last Vital Signs Temp 97.7 F 02/20/19 07:29 Pulse 94 02/20/19 07:20 Resp 22 02/20/19 07:00 BP 96/68 02/20/19 07:00 Pulse Ox 100 02/20/19 07:00 General appearance: no acute distress, comatose (Intubated and sedated) Eyes: icteric ENT: oropharynx moist Effort: normal Auscultation: bilateral: rales Cardiovascular: regular rate and rhythm Gastrointestinal: normoactive bowel sounds Integumentary: normal Extremities: no cyanosis Musculoskeletal: no deformities unable to assess due to mental status Ventilator Settings Ventilator Settings: Ventilator Settings, Last 8 Hours Ventilator Tidal Volume 550 Setting Ventilator Tidal Volume 500 Setting Ventilator Tidal Volume 500 Setting Ventilator Tidal Volume 500 Setting Ventilator Tidal Volume 500 Setting Ventilator Tidal Volume 500 Setting Ventilator Tidal Volume 500 Setting Ventilator Tidal Volume 500 Setting Ventilator Tidal Volume 500 Setting Ventilator Tidal Volume 500 Setting Ventilator Tidal Volume 500 Setting Ventilator Respiratory Rate 18 Setting Ventilator Respiratory Rate 22 Setting Ventilator Respiratory Rate 20 Setting Ventilator Respiratory Rate 20 Setting Ventilator Respiratory Rate 20 Setting Ventilator Respiratory Rate 20 Setting Ventilator Respiratory Rate 20 Setting Ventilator Respiratory Rate 20 Setting Ventilator Respiratory Rate 18 Setting Ventilator Respiratory Rate 18 Setting Ventilator Respiratory Rate 18 Setting Actual Respiratory Rate 22 Actual Respiratory Rate 20 Actual Respiratory Rate 20 Actual Respiratory Rate 20 Actual Respiratory Rate 20 Actual Respiratory Rate 20 Actual Respiratory Rate 18 Positive End Expiratory 5 Pressure Positive End Expiratory 5 Pressure Positive End Expiratory 5 Pressure Positive End Expiratory 5 Pressure Positive End Expiratory 5 Pressure Positive End Expiratory 5 Pressure Positive End Expiratory 5 Pressure Positive End Expiratory 5 Pressure Positive End Expiratory 5 Pressure Positive End Expiratory 5 Pressure Peak Inspiratory Airway 22 Pressure Peak Inspiratory Airway 21 Pressure Peak Inspiratory Airway 21 Pressure Peak Inspiratory Airway 21 Pressure Peak Inspiratory Airway 21 Pressure Peak Inspiratory Airway 21 Pressure Peak Inspiratory Airway 21 Pressure Results - Laboratory Findings CBC and BMP: 02/20/19 03:45 02/20/19 09:02 ABG ABG pH 7.15 pH Units (7.32-7.45) L* 02/20/19 04:43 ABG pCO2 50 mmHg (35-45) H 02/20/19 04:43 ABG pO2 104 mmHg (85-104) 02/20/19 04:43 ABG O2 Saturation 96 % (95-98) 02/20/19 04:43 PT/INR, D-dimer PT 15.8 Seconds (9.4-12.1) H 02/19/19 13:50 Abnormal lab findings: Abnormal lab results WBC 14.7 K/mcL (4.3-11.1) H 02/20/19 03:45 MCV 100.8 fL (83.0-100.0) H 02/19/19 21:00 MCHC 31.3 g/dL (31.6-35.5) L 02/19/19 21:00 RDW 14.6 % (11.5-14.5) H 02/19/19 21:00 Plt Count 137 K/mcL (140-400) L 02/20/19 03:45 13.1 K/mcL (1.6-8.9) H 02/20/19 03:45 Slight Decrease (Normal) L 02/20/19 03:45 PT 15.8 Seconds (9.4-12.1) H 02/19/19 13:50 Heparin Anti-Xa, Unfract 0.00 IU/mL (0.30-0.70) L 02/19/19 13:50 ABG pH 7.15 pH Units (7.32-7.45) L* 02/20/19 04:43 ABG pCO2 50 mmHg (35-45) H 02/20/19 04:43 ABG pO2 119 mmHg (85-104) H 02/20/19 00:12 ABG HCO3 17 mEq/L (21-27) L 02/20/19 04:43 ABG Total CO2 19 mEq/L (20-26) L 02/20/19 04:43 ABG O2 Saturation 93 % (95-98) L 02/19/19 21:57 ABG Base Excess -12 mEq/L (-2 to 3) L 02/20/19 04:43 Sodium 135 mEq/L (136-145) L 02/20/19 03:45 Potassium 5.4 mEq/L (3.5-5.1) H 02/20/19 03:45 Chloride 87 mEq/L (98-107) L 02/19/19 13:50 Carbon Dioxide 18 mEq/L (23-29) L 02/20/19 03:45 BUN 90 mg/dL (6-20) H 02/20/19 03:45 6.38 mg/dL (0.70-1.30) H 02/20/19 03:45 Est GFR ( Amer) 11 (> 60) L 02/20/19 03:45 Est GFR (Non-Af Amer) 9 (> 60) L 02/20/19 03:45 Glucose 286 mg/dL (70-105) H 02/20/19 03:45 POC Glucose 264 mg/dL (70-99) H 02/20/19 00:22 318 (280-300) H 02/20/19 03:45 Lactic Acid 4.8 mmol/L (0.5-2.2) H* 02/20/19 03:45 Calcium 6.4 mg/dL (8.6-10.3) L 02/20/19 03:45 Venous Ioniz Calcium 0.76 mmol/L (1.15-1.35) L 02/20/19 04:10 Phosphorus 10.3 mg/dL (2.7-4.5) H 02/20/19 03:45 4.0 mg/dL (0.3-1.0) H 02/20/19 03:45 2.5 mg/dL (0.0-0.2) H 02/20/19 03:45 1.5 mg/dL (0.0-1.2) H 02/20/19 03:45 AST > 3000 Units/L (13-39) H 02/20/19 03:45 ALT 1869 Units/L (7-52) H 02/20/19 03:45 227 mcmol/L (16-53) H 02/19/19 17:30 0.77 ng/mL (< 0.04) H* 02/19/19 17:30 B-Natriuretic Peptide 3331 pg/mL (Less than 100) H 02/19/19 13:50 5.7 g/dL (6.4-8.9) L 02/20/19 03:45 2.6 g/dL (3.5-5.7) L 02/20/19 03:45 4.2 g/dL (2.4-3.5) H 02/19/19 13:50 0.8 (1.1-2.2) L 02/20/19 03:45 113 Units/L (11-82) H 02/19/19 13:50 Ur Specimen Adequacy See below A 02/19/19 15:10 Turbid (Clear) A 02/19/19 15:10 Ur Specific Citra 1.027 (1.010-1.025) H 02/19/19 15:10 >=1000 mg/dL (Neg-Trace) H 02/19/19 15:10 15 mg/dL (Negative) H 02/19/19 15:10 Large (Negative) H 02/19/19 15:10 Moderate (Negative) H 02/19/19 15:10 2.0 mg/dL (Normal) H 02/19/19 15:10 Ur Leukocyte Esterase Small (Negative) H 02/19/19 15:10 5-15 per hpf (0-3) H 02/19/19 15:10 TNTC per hpf (0-3) H 02/19/19 15:10 Ur Squamous Epith Cells Many per lpf (None-Few) H 02/19/19 15:10 Ur Culture Indicated? YES (NO) A 02/19/19 15:10 Positive ng/mL (Vtuqox=667) H 02/19/19 21:50 Acetaminophen < 10 mcg/mL (10-20) L 02/19/19 13:50 U Benzodiazepines Scrn Positive ng/mL (Fcvoxu=379) H 02/19/19 21:50 U Marijuana (THC) Screen Positive ng/mL (Cutoff = 50) H 02/19/19 21:50 - Microbiology Findings Microbiology Findings: Microbiology, Last 48 Hours 02/19/19 13:50 Blood Culture - Preliminary Peripheral Venipuncture Culture is incubating and being continuously monitored for growth. Final report to follow. 02/19/19 13:50 Blood Culture - Preliminary Peripheral Venipuncture Gram Positive Cocci 02/19/19 15:10 Urine Culture - Preliminary Urine,Catheterized (Straight) Culture is incubating. 02/19/19 14:45 Sputum Culture - Final Sputum - Clinical Findings Intake & Output: Intake & Output 02/19/19 02/19/19 02/20/19 15:59 23:59 07:59 Intake Total 1000 / 4326.1 3326.1 / 4326.1 4845.2 / 4845.2 Output Total 525 / 525 Balance 1000 / 4326.1 3326.1 / 4326.1 4320.2 / 4320.2 Weight 61.689 kg Consult Discharge Plan - Plan Referrals: NONE,PCP [Primary Care Provider] - <Xochitl Nuñez - Last Filed: 02/22/19 13:00> Date of Encounter: 02/20/19 Objective PUL Vital signs: Last Vital Signs Temp 97.7 F 02/20/19 07:29 Pulse 95 02/20/19 08:00 Resp 18 02/20/19 08:00 BP 85/63 02/20/19 08:00 Pulse Ox 100 02/20/19 08:00 Ventilator Settings Ventilator Settings: Ventilator Settings, Last 8 Hours Ventilator Tidal Volume 550 Setting Ventilator Tidal Volume 550 Setting Ventilator Tidal Volume 550 Setting Ventilator Tidal Volume 500 Setting Ventilator Tidal Volume 500 Setting Ventilator Tidal Volume 500 Setting Ventilator Tidal Volume 500 Setting Ventilator Tidal Volume 500 Setting Ventilator Tidal Volume 500 Setting Ventilator Tidal Volume 500 Setting Ventilator Tidal Volume 500 Setting Ventilator Respiratory Rate 18 Setting Ventilator Respiratory Rate 18 Setting Ventilator Respiratory Rate 18 Setting Ventilator Respiratory Rate 22 Setting Ventilator Respiratory Rate 20 Setting Ventilator Respiratory Rate 20 Setting Ventilator Respiratory Rate 20 Setting Ventilator Respiratory Rate 20 Setting Ventilator Respiratory Rate 20 Setting Ventilator Respiratory Rate 20 Setting Ventilator Respiratory Rate 18 Setting Actual Respiratory Rate 18 Actual Respiratory Rate 18 Actual Respiratory Rate 22 Actual Respiratory Rate 20 Actual Respiratory Rate 20 Actual Respiratory Rate 20 Actual Respiratory Rate 20 Actual Respiratory Rate 20 Positive End Expiratory 5 Pressure Positive End Expiratory 5 Pressure Positive End Expiratory 5 Pressure Positive End Expiratory 5 Pressure Positive End Expiratory 5 Pressure Positive End Expiratory 5 Pressure Positive End Expiratory 5 Pressure Positive End Expiratory 5 Pressure Positive End Expiratory 5 Pressure Positive End Expiratory 5 Pressure Peak Inspiratory Airway 26 Pressure Peak Inspiratory Airway 26 Pressure Peak Inspiratory Airway 22 Pressure Peak Inspiratory Airway 21 Pressure Peak Inspiratory Airway 21 Pressure Peak Inspiratory Airway 21 Pressure Peak Inspiratory Airway 21 Pressure Peak Inspiratory Airway 21 Pressure Results - Laboratory Findings CBC and BMP: 02/21/19 04:15 02/21/19 04:15 ABG ABG pH 7.26 pH Units (7.32-7.45) L 02/20/19 08:31 ABG pCO2 45 mmHg (35-45) 02/20/19 08:31 ABG pO2 99 mmHg (85-104) 02/20/19 08:31 ABG O2 Saturation 97 % (95-98) 02/20/19 08:31 PT/INR, D-dimer PT 21.6 Seconds (9.4-12.1) H 02/20/19 08:00 Abnormal lab findings: Abnormal lab results WBC 14.7 K/mcL (4.3-11.1) H 02/20/19 03:45 MCV 100.8 fL (83.0-100.0) H 02/19/19 21:00 MCHC 31.3 g/dL (31.6-35.5) L 02/19/19 21:00 RDW 14.6 % (11.5-14.5) H 02/19/19 21:00 Plt Count 137 K/mcL (140-400) L 02/20/19 03:45 13.1 K/mcL (1.6-8.9) H 02/20/19 03:45 Slight Decrease (Normal) L 02/20/19 03:45 PT 21.6 Seconds (9.4-12.1) H 02/20/19 08:00 Heparin Anti-Xa, Unfract 0.00 IU/mL (0.30-0.70) L 02/19/19 13:50 ABG pH 7.26 pH Units (7.32-7.45) L 02/20/19 08:31 ABG pCO2 50 mmHg (35-45) H 02/20/19 04:43 ABG pO2 119 mmHg (85-104) H 02/20/19 00:12 ABG HCO3 20 mEq/L (21-27) L 02/20/19 08:31 ABG Total CO2 19 mEq/L (20-26) L 02/20/19 04:43 ABG O2 Saturation 93 % (95-98) L 02/19/19 21:57 ABG Base Excess -7 mEq/L (-2 to 3) L 02/20/19 08:31 Sodium 135 mEq/L (136-145) L 02/20/19 03:45 Potassium 5.4 mEq/L (3.5-5.1) H 02/20/19 03:45 Chloride 87 mEq/L (98-107) L 02/19/19 13:50 Carbon Dioxide 18 mEq/L (23-29) L 02/20/19 03:45 BUN 90 mg/dL (6-20) H 02/20/19 03:45 6.38 mg/dL (0.70-1.30) H 02/20/19 03:45 Est GFR ( Amer) 11 (> 60) L 02/20/19 03:45 Est GFR (Non-Af Amer) 9 (> 60) L 02/20/19 03:45 Glucose 286 mg/dL (70-105) H 02/20/19 03:45 POC Glucose 264 mg/dL (70-99) H 02/20/19 00:22 318 (280-300) H 02/20/19 03:45 Lactic Acid 4.8 mmol/L (0.5-2.2) H* 02/20/19 03:45 Calcium 6.4 mg/dL (8.6-10.3) L 02/20/19 03:45 Venous Ioniz Calcium 0.76 mmol/L (1.15-1.35) L 02/20/19 04:10 Phosphorus 10.3 mg/dL (2.7-4.5) H 02/20/19 03:45 4.0 mg/dL (0.3-1.0) H 02/20/19 03:45 2.5 mg/dL (0.0-0.2) H 02/20/19 03:45 1.5 mg/dL (0.0-1.2) H 02/20/19 03:45 AST > 3000 Units/L (13-39) H 02/20/19 03:45 ALT 1869 Units/L (7-52) H 02/20/19 03:45 227 mcmol/L (16-53) H 02/19/19 17:30 0.77 ng/mL (< 0.04) H* 02/19/19 17:30 B-Natriuretic Peptide 3331 pg/mL (Less than 100) H 02/19/19 13:50 5.7 g/dL (6.4-8.9) L 02/20/19 03:45 2.6 g/dL (3.5-5.7) L 02/20/19 03:45 4.2 g/dL (2.4-3.5) H 02/19/19 13:50 0.8 (1.1-2.2) L 02/20/19 03:45 113 Units/L (11-82) H 02/19/19 13:50 Ur Specimen Adequacy See below A 02/19/19 15:10 Turbid (Clear) A 02/19/19 15:10 Ur Specific Citra 1.027 (1.010-1.025) H 02/19/19 15:10 >=1000 mg/dL (Neg-Trace) H 02/19/19 15:10 15 mg/dL (Negative) H 02/19/19 15:10 Large (Negative) H 02/19/19 15:10 Moderate (Negative) H 02/19/19 15:10 2.0 mg/dL (Normal) H 02/19/19 15:10 Ur Leukocyte Esterase Small (Negative) H 02/19/19 15:10 5-15 per hpf (0-3) H 02/19/19 15:10 TNTC per hpf (0-3) H 02/19/19 15:10 Ur Squamous Epith Cells Many per lpf (None-Few) H 02/19/19 15:10 Ur Culture Indicated? YES (NO) A 02/19/19 15:10 Positive ng/mL (Inhytb=331) H 02/19/19 21:50 Acetaminophen < 10 mcg/mL (10-20) L 02/19/19 13:50 U Benzodiazepines Scrn Positive ng/mL (Apdvna=691) H 02/19/19 21:50 U Marijuana (THC) Screen Positive ng/mL (Cutoff = 50) H 02/19/19 21:50 - Microbiology Findings Microbiology Findings: Microbiology, Last 48 Hours 02/19/19 13:50 Blood Culture - Preliminary Peripheral Venipuncture Culture is incubating and being continuously m onitored for growth. Final report to follow. 02/19/19 13:50 Blood Culture - Preliminary Peripheral Venipuncture Gram Positive Cocci 02/19/19 15:10 Urine Culture - Preliminary Urine,Catheterized (Straight) Culture is incubating. 02/19/19 14:45 Sputum Culture - Final Sputum - Clinical Findings Intake & Output: Intake & Output 02/19/19 02/20/19 02/20/19 23:59 07:59 15:59 Intake Total 3326.1 / 4326.1 4845.2 / 5140.2 295 / 5140.2 Output Total 525 / 525 Balance 3326.1 / 4326.1 4320.2 / 4615.2 295 / 4615.2 - Attending Attestation I examined this patient and my medical decision-making was reviewed with the Resident Physician. I agree with the documented findings, disposition and treatment plan as described except to the extent set forth below. Patient seen and examined. Labs, radiology, chart personally reviewed. Agree with resident's history and physical, assessment, plan with following comments: [employer]OR: Patient does not follows commands, patient is requiring sedation for the vent synchrony and this is very concerning since sedation effect his mental status upon recovery especially with his underlying renal and liver disease. Pulmonary: Unfortunately patient's oxygenation has significantly deteriorated that needed higher FiO2 and PEEP and we will repeat ABG to make sure there is a correlation between PaO2 and SPO2 on the monitor. Hopefully with placement therapy that will help oxygenation as well. Review chest x-ray personally and no significant evidence of fluid retention at this time. Cardiovascular: Patient remained in shock which is vasodilatory in nature, continue vasopressor. GI: Nutrition per dietary and GI prophylaxis per routine. Patient with significant alcoholic hepatitis at this time and needs to be treated with prednisolone and there is elevated DI factor. Unfortunately with his recent history of alcohol abuse he would not be a candidate for any transplant. Heme: DVT prophylaxis per routine. Continue monitoring coagulation because of his liver disease, he is at risk of worsening.. ID: Continue antibiotics and plan to de-escalation and with his high lactic acid, mortality is high. Renal; urine out put and renal function reviewed. Appreciate nephrology for renal replacement therapy. Endorcine: blood glucose is monitored Lines: all lines checked and no evidence of infections Skin: skin care to prevent pressure ulcers per nursing routine care Dispo: ICU Code: Full. Prognosis. Overall poor and this was discussed with his family at the bedside. I spent 50 min of Critical Care time with this patient. It involved decision making of high complexity to assess, manipulate, and support vital organ system failure and/or to prevent further life threatening deterioration of the patient's condition. The time involved in the performance of separately reportable procedures was not counted toward critical care time.
[2019-02-20] MEDS: Pantoprazole 40 MG VIAL IVP SCH (07:53)
[2019-02-20] MEDS: FentaNYL (PF) 1,000 MCG in 0.9 % Sodium Chloride 80 ML IVC SCH ×3 (08:03→21:06)
[2019-02-20 08:15] LABS: INR 1.9; Prothrombin Time 21.6 Seconds (9.4-12.1)
[2019-02-20] MEDS ORDERED: *HR* Heparin 5,000 UNIT/ML VIAL IV PRN (08:20)
[2019-02-20] MEDS ORDERED: *HR* Dextrose 50 % in Water (Syg) 50 ML SYRINGE IVP PRN (08:23)
[2019-02-20] MEDS ORDERED: Dextrose Gel 15 GM/37.5 ML TUBE PO PRN ×2 (08:23)
[2019-02-20] MEDS ORDERED: D5% in Water 1,000 ML IVC PRN (08:23)
[2019-02-20] MEDS ORDERED: 0.9 % Sodium Chloride 1,000 ML PRIME SCH (08:30)
[2019-02-20 08:35] LABS: ABG Base Excess -7 mEq/L (-2 to 3); ABG HCO3 20 mEq/L (21-27); ABG Oxygen Saturation 97 % (95-98); ABG PCO2 45 mmHg (35-45); ABG PH 7.26 pH Units (7.32-7.45); ABG PO2 99 mmHg (85-104); ABG TCO2 22 mEq/L (20-26); Blood Gas Modality VC; Blood Gas PEEP 5 cm H2O; Blood Gas VT 550 cc
[2019-02-20] MEDS ORDERED: Thiamine (B-1) 100 MG in D5% in Water 50 ML IVPB SCH (09:00)
[2019-02-20] MEDS ORDERED: Azithromycin 500 MG in D5% in Water 250 ML IVPB SCH (09:00)
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
[2019-02-20] MEDS: PrednisoLONE Oral Soln 15 MG/5 ML UDC PO SCH (09:17)
[2019-02-20 09:49] LABS: Alanine Aminotransferase 1914 Units/L (7-52); Albumin 2.4 g/dL (3.5-5.7); Albumin/Globulin Ratio 0.8 (1.1-2.2); Alkaline Phosphatase 81 Units/L (34-104); Aspartate Amino Transferase > 3000 Units/L (13-39); BUN/Creatinine Ratio 15 (6-26); Bilirubin,Total 3.6 mg/dL (0.3-1.0); Blood Urea Nitrogen 98 mg/dL (6-20); Calcium 6.2 mg/dL (8.6-10.3); Carbon Dioxide 24 mEq/L (23-29); Chloride 97 mEq/L (98-107); Glucose 311 mg/dL (70-105); Magnesium 2.1 mg/dL (1.6-2.6); Osmolality,Calculated 326 (280-300); Potassium 5.3 mEq/L (3.5-5.1); Sodium 137 mEq/L (136-145); Total Protein 5.4 g/dL (6.4-8.9); eGFR For African Americans 11 (> 60); eGFR For Non-African Americans 9 (> 60)
[2019-02-20] MEDS ORDERED: *HR* Heparin 5,000 UNIT/ML VIAL ONE (10:02)
[2019-02-20] MEDS: PrismaSATE BGK 4/2.5 5,000 ML CRRT SCH ×6 (10:52→20:00)
[2019-02-20] MEDS: Insulin LISPRO 300 UNITS/3 ML VIAL SQ SCH ×4 (11:11→23:35)
[2019-02-20] MEDS ORDERED: Lactulose Oral Soln 20 GM/30 ML UDC PO ONE (11:49)
--- NOTE | 2019-02-20 12:02 | Nephrology Consult Note ---
Date of Encounter: 02/20/19 Time of Encounter: 08:00 Assessment and Plan (1) ROD (acute kidney injury) Current Visit: Yes Status: Acute Severe acute kidney injury with medically refractory hyperkalemia, as well as multiple other electrolyte abnormalities. He will need initiation of renal replacement therapy today. Because of the severe hypotension, I recommend CVVHDF. This modality is ideally suited for patients also with sepsis, and I recommend using Prismasate and Replacement fluid at 1000 and 1000 respectively. Currently there is a national shortage of IV calcium, so the regional anticoagulant of citrate is not an option. Plus he is auto anticoagulated likely from his liver failure. I will defer his liver failure to the primary team, but in the differential diagnosis for his acute kidney injury, hepatorenal syndrome may be included (this is a diagnosis of exclusion). I recommend following a renal protective strategy including strict I's and O's, daily weights, avoidance of nephrotoxic agents, renal dosing. I had multiple conversations by phone with the ER and overnight physicians regarding this patient's care. I provided critical care time of approximately 48 minutes including examination, medical decision-making and evaluation and management, documentation, logistics of arranging renal replacement therapy including cons ultation with interventional radiology, and discussions by phone with other physicians. I discussed the pros, cons, indications, risks vs benefits of placing a temporary HD catheter and CRRT/ENVIRONMENTAL REMEDIATION ENGINEER options for the pt with his daughter, who said she is his next of kin. Thank you. (2) Hyperkalemia Current Visit: Yes Status: Acute Medically refractory. Needs renal replacement therapy. See above (3) Elevated LFTs Current Visit: Yes Status: Acute See above (4) Alcohol abuse Current Visit: Yes Status: Acute As per primary (5) Septic shock Current Visit: Yes Status: Acute ICU following the pt. Due to his hypotension, CRRT will be needed since standard HD would too greatly affect his BPs. (6) Proteinuria Current Visit: Yes Status: Acute Noted on the UA. I recommend screening serologies to assess for any potential GN. Qualifiers: Proteinuria type: persistent Qualified Code(s): R80.1 - Persistent proteinuria, unspecified (7) Hyperphosphatemia Current Visit: Yes Status: Acute Noted on the labs. Mariah with CVVHDF will provide clearance, and so while on Mariah I do not recommend adding a Phos binder. (8) Lactic acidosis Current Visit: Yes Status: Acute Once on Mariah, the bicarb gtt can be stopped: discussed with the RAILROAD SHOP INSPECTOR. History of Present Illness - Reason for Consult Consult date: 02/19/19 Acute Kidney Injury, hyperkalemia, metabolic acidosis Requesting physician: Milton Sawant - Chief Complaint ROD, Hyperkalemia - History of Present Illness The patient is a 58-year-old -[place] male with a past medical history of long-standing alcohol use disorder, and etc. who presented with severe acute kidney injury. Nephrology was consulted overnight to assist with hyperkalemia and acute renal failure. I had multiple conversations with colleague physicians overnight and early this morning by phone. The patient's daughter, who is an employee here at [employer] [employer], was present during my ICU interview and exam earlier this AM. She affirmed that the patient had been a heavy drinker when she was young and recently cut back until his girlfriend a few months ago. She said she has not seen him in the last 2 months, she said, but she thinks he has been drinking heavily again. She does not know if he has been taking excessive NSAIDs recently, but typically he does not "take pills" and historically has not taken his prescribed medications rout inely. She also reported that it is unlikely if he consumed any antifreeze or similar alcohols. Much of the history is limited due to the fact that he is intubated and sedated. Family history: There are no first-degree relatives with a history of renal disease/ESRD, according to the patient's daughter. Past Med Surg Social Fam HX - Past Medical History Medical history: DVT, pulmonary embolus, other Additional medical history: Drug abuse, ETOH Psychiatric history: no psych history - Past Surgical History Surgical History: no surgical history - Social History Smoking Status: Current every day smoker Smokeless Tobacco Status: No Alcohol use: heavy, recent Drug use: none Medications and Allergies No Known Home Drugs 02/19/19 [History] Allergy/AdvReac Type Severity Reaction Status Date / Time No Known Allergies Allergy Verified 05/08/15 19:12 Review of Systems ROS unobtainable: due to mental status Exam - Vital Signs Vital signs: Initial Vital Signs Temp Pulse Resp BP Pulse Ox 100.4 F H 124 28 82/50 100 02/19/19 13:40 02/19/19 13:40 02/19/19 13:40 02/19/19 13:40 02/19/19 13:40 Vital Signs - Last 8 Hours Temp Pulse Resp BP Pulse Ox 02/20/19 11:06 18 100 02/20/19 11:00 96 18 73/58 100 02/20/19 10:00 95 18 96/69 100 02/20/19 09:50 18 86/63 100 02/20/19 09:00 95 18 108/80 100 02/20/19 08:00 95 18 85/63 100 02/20/19 07:45 18 100 02/20/19 07:29 97.7 F 02/20/19 07:20 94 02/20/19 07:00 95 22 96/68 100 02/20/19 04:56 98.4 F Intake and Output 02/19/19 02/20/19 02/20/19 23:59 07:59 15:59 Intake Total 3326.1 / 4326.1 4845.2 / 6356.2 1511 / 6356.2 Output Total 525 / 575 50 / 575 Balance 3326.1 / 4326.1 4320.2 / 5781.2 1461 / 5781.2 Intake: IV Fluids 3326.1 / 4326.1 4845.2 / 6356.2 1511 / 6356.2 PrismaSATE BGK 4/2.5 5,000 ML @ 0 / 0 1000 mls/hr CRRT CONT COUNT INCLUDES THE [facility] Rx#: [id number] HumuLIN R 10 UNIT In 0.9 % 10.1 / 10.1 Sodium Chloride 10 ML @ 1212 mls/hr IV ONCE ONE Rx#: [id number] 0.9 % Sodium Chloride 1,000 ML 2000 / 3000 3800 / 3800 @ 150 mls/hr IVC .Q6H40M [facility] Rx #:[id number] FentaNYL (PF) 1,000 MCG In 0.9 100.0 / 100.0 30 / 148 118 / 148 % Sodium Chloride 80 ML @ 50 MCG/HR 5 mls/hr IVC CONT COUNT INCLUDES THE [facility] Rx #:[id number] Versed 50 MG In 0.9 % Sodium 100.0 / 100.0 100 / 239 139 / 239 Chloride 90 ML @ 2 MG/HR 4 mls/ hr IVC CONT COUNT INCLUDES THE [facility] Rx#:[id number] Levophed 8 MG In Dextrose 5% 346 / 346 254 / 358 104 / 358 250 ML @ 8 MCG/MIN 15.48 mls/hr IVC CONT COUNT INCLUDES THE [facility] Rx#:[id number] Sodium Bicarbonate 150 MEQ In 999 / 999 Dextrose 5% 1,000 ML @ 150 mls/ hr IVC .Q7H40M COUNT INCLUDES THE [facility] Rx#: [id number] Zithromax 500 MG In Dextrose 5% 250 / 250 250 ML @ 252 mls/hr IVPB ONCE ONE Rx#:[id number] Calcium Gluconate 2,000 MG In 0 120 / 120 .9 % Sodium Chloride 100 ML @ 220 mls/hr IVPB ONCE ONE Rx#: [id number] Calcium Gluconate 1gm/50mL 1 gm 50 / 50 150 / 150 In 50 ml @ 50 mls/hr IVPB Q6HR PRN Rx#:[id number] Zosyn 3.375 GM In 0.9 % Sodium 100 / 100 100 / 100 Chloride (Mini-Bag +) 100 ML @ 25 mls/hr IVPB Q12HR COUNT INCLUDES THE [facility] Rx#: [id number] Vitamin B-1 100 MG Folvite 1 MG 511.2 / 511.2 M.v.i. Adult 10 ml In 0.9 % Sodium Chloride 500 ML @ 85.2 mls/hr IVPB ONCE ONE Rx#: [id number] Vitamin B-1 100 MG In Dextrose 51 / 51 5% 50 ML @ 50 mls/hr IVPB DAILY COUNT INCLUDES THE [facility] Rx#:[id number] Vancocin 1,000 MG In 0.9 % 250 / 250 Sodium Chloride 250 ML @ 167 mls/hr IVPB ONCE ONE Rx#: [id number] 0.9 % Sodium Chloride 1,000 ML 0 / 0 @ As Directed PRIME .Q0M COUNT INCLUDES THE [facility] Rx #:[id number] Oral 0 / 0 0 / 0 Output: Catheter 175 / 175 0 / 175 Gastric Drainage 350 / 400 50 / 400 Other: Weight 76 kg Blood Glucose* 179 239 294 Patient Weight 02/20/19 23:59 Weight 76 kg - General Appearance General appearance: well-developed (thin body habitus), moderate distress, sedated on ventilator, intubated EENT: ATNC, mucous membranes moist, conjunctiva injected (and mildly jaundiced), scleral icterus Neck: no JVD, supple Respiratory: clear Cardiology: no edema, regular rate, regular rhythm, normal S1, normal S2 Gastrointestinal: normoactive bowel sounds, no tenderness, no guarding Integumentary: no rash, warm and dry Neurologic: obtunded (due to intubation/sedation) Musculoskeletal: no erythema, no cyanosis, no clubbing Results - Lab Results 02/20/19 03:45 02/20/19 09:02 Most recent lab results 02/19/19 02/20/19 02/20/19 13:50 00:12 00:15 ABG pH 7.18 L* ABG pCO2 49 H ABG pO2 119 H ABG HCO3 18 L ABG O2 Saturation 97 Calcium 7.9 L 6.7 L Phosphorus 10.5 H Magnesium 2.5 02/20/19 02/20/19 02/20/19 03:45 04:43 08:31 ABG pH 7.15 L* 7.26 L ABG pCO2 50 H 45 ABG pO2 104 99 ABG HCO3 17 L 20 L ABG O2 Saturation 96 97 Calcium 6.4 L Phosphorus 10.3 H Magnesium 2.2 02/20/19 09:02 ABG pH ABG pCO2 ABG pO2 ABG HCO3 ABG O2 Saturation Calcium 6.2 L Phosphorus 10.0 H Magnesium 2.1 Consult Discharge Plan - Plan Referrals: NONE,PCP [Primary Care Provider] -
[2019-02-20 13:30] LABS: ABG Base Excess -5 mEq/L (-2 to 3); ABG HCO3 23 mEq/L (21-27); ABG Oxygen Saturation 98 % (95-98); ABG PCO2 49 mmHg (35-45); ABG PH 7.27 pH Units (7.32-7.45); ABG PO2 115 mmHg (85-104); ABG TCO2 24 mEq/L (20-26); Blood Gas Modality VC; Blood Gas PEEP 5 cm H2O; Blood Gas VT 550 cc
--- NOTE | 2019-02-20 13:52 | Electrocardiograph Report ---
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
[2019-02-20] MEDS: Piperacillin/Tazobactam 3.375 GM in 0.9 % Sodium Chloride Mini Bag 100 ML IVPB SCH ×2 (15:00→23:35)
[2019-02-20] MEDS ORDERED: Perflutren Lipid Microsphere 1.3 ML in 0.9 % Sodium Chloride 8.7 ML IVP ONE (18:45)
[2019-02-20] MEDS ORDERED: *HR* Atropine Sulfate 1 MG/10 ML SYRINGE IVP ONE (18:50)
[2019-02-20 19:42] LABS: Calcium 6.6 mg/dL (8.6-10.3); Potassium 5.6 mEq/L (3.5-5.1)
[2019-02-20] MEDS ORDERED: 0.9 % Sodium Chloride 500 ML ONE (19:55)
[2019-02-20 21:54] LABS: ABG Base Excess -7 mEq/L (-2 to 3); ABG HCO3 22 mEq/L (21-27); ABG Oxygen Saturation 99 % (95-98); ABG PCO2 55 mmHg (35-45); ABG PH 7.21 pH Units (7.32-7.45); ABG PO2 197 mmHg (85-104); ABG TCO2 24 mEq/L (20-26); Blood Gas PEEP 5 cm H2O
[2019-02-20 22:40] LABS: Magnesium 2.4 mg/dL (1.6-2.6); Phosphorous 7.1 mg/dL (2.7-4.5)
[2019-02-21] MEDS: Insulin LISPRO 300 UNITS/3 ML VIAL SQ SCH ×2 (03:18→07:27)
[2019-02-21] MEDS: Artificial Tears SOLN 15 ML BOTTLE BOTH EYES SCH ×2 (03:18→07:18)
[2019-02-21] MEDS: FentaNYL (PF) 1,000 MCG in 0.9 % Sodium Chloride 80 ML IVC SCH (04:31)
[2019-02-21 04:46] LABS: VBG Ionized Calcium 0.86 mmol/L (1.15-1.35)
[2019-02-21 04:54] LABS: Prothrombin Time 23.2 Seconds (9.4-12.1)
[2019-02-21 05:07] LABS: Magnesium 2.5 mg/dL (1.6-2.6); Phosphorous 7.2 mg/dL (2.7-4.5); Potassium 5.8 mEq/L (3.5-5.1)
[2019-02-21 05:14] LABS: Basophils % 0.4 %; Nucleated Red Blood Cells 0.2 /100 WBC (0)
[2019-02-21 05:16] LABS: Basophils # 0.1 K/mcL (0.0-0.2); Hematocrit 46.7 % (37.5-50.1); Hemoglobin 15.5 g/dL (12.9-16.9); Immature Granulocytes % 5.1 % (0-4); Immature Platelets 10.7 % (1.1-6.1); Lymphocytes # 0.5 K/mcL (0.6-4.6); Lymphocytes % 2.9 %; Mean Corpuscular HGB Conc 33.2 g/dL (31.6-35.5); Mean Corpuscular Hemoglobin 31.2 pg (28.0-33.3); Monocytes # 0.6 K/mcL (0.0-1.3); Monocytes % 3.9 %; Neutrophils # 14.5 K/mcL (1.6-8.9); Red Blood Count 4.97 M/mcL (4.19-5.50); Red Cell Distribution Width 15.6 % (11.5-14.5); Segmented Neutrophils % 87.7 %; White Blood Count 16.5 K/mcL (4.3-11.1)
[2019-02-21 05:22] LABS: Alanine Aminotransferase 2444 Units/L (7-52); Albumin 2.7 g/dL (3.5-5.7); Albumin/Globulin Ratio 0.8 (1.1-2.2); Alkaline Phosphatase 118 Units/L (34-104); Aspartate Amino Transferase > 3000 Units/L (13-39); Bilirubin,Direct 7.3 mg/dL (0.0-0.2); Bilirubin,Indirect 5.9 mg/dL (0.0-1.2); Bilirubin,Total 13.2 mg/dL (0.3-1.0); Globulin 3.3 g/dL (2.4-3.5)
[2019-02-21 05:33] LABS: Platelet Count 35 K/mcL (140-400)
[2019-02-21] MEDS: Norepinephrine 8 MG in D5% in Water 250 ML IVC SCH (05:40)
[2019-02-21] MEDS: PrismaSATE BGK 4/2.5 5,000 ML CRRT SCH ×2 (05:44→05:45)
[2019-02-21 05:58] LABS: Poikilocytosis 1+ (Not Present)
[2019-02-21 05:59] LABS: Platelet Estimate Marked Decrease (Normal)
[2019-02-21 06:04] LABS: ABG Base Excess -12 mEq/L (-2 to 3); ABG HCO3 18 mEq/L (21-27); ABG Oxygen Saturation 95 % (95-98); ABG PCO2 56 mmHg (35-45); ABG PH 7.12 pH Units (7.32-7.45); ABG PO2 105 mmHg (85-104); ABG TCO2 20 mEq/L (20-26); Blood Gas PEEP 5 cm H2O; Blood Gas VT 550 cc
[2019-02-21] MEDS: Calcium Gluconate 1gm/50mL 1 GM/50 ML BAG IVPB PRN (06:47)
--- NOTE | 2019-02-21 07:04 | Pulmonology Progress Note ---
Date of Encounter: 02/21/19 Time of Encounter: 07:03 Assessment and Plan (1) Septic shock Current Visit: Yes Status: Acute * Chest CT shows emphysema with right lower lobe pneumonia with left upper lobe scarring and cardiomegaly with small pericardial effusion * CT abdomen/pelvis shows no acute intra-abdominal pathology at this time * CT head shows no evidence of acute intracranial pathology * Lactate elevated from 9.3, to 5.6, 5.8, to 4.8, BP not responsive to 3L fluid bolus given in ED * Blood, sputum, and urine cultures pending. Prelimary read of 08/23 BC shows gram positive cocci. At this point likely source of infection is respiratory. Pending sensitivities and final read. * Patient requiring pressure support with Levophed, we will continue to monitor and titrate as is necessary * IV sedation with fentanyl and Versed, will switch to propofol should the patient's pressure stabilize given decreased clearance of Versed with impaired renal function * Continue IV vancomycin and Zosyn until susceptibilities improve. Will discontinue azithromycin today. (2) Hepatorenal failure Current Visit: Yes Status: Acute * Nephrology consulted and following, appreciate their recommendations, overnight developed hyperkalemia up to 6.4 with implementation by night team of normal saline, albuterol, calcium gluconate, Solu-Cortef, insulin and lactulose with improvement to 5.4 * Nephrology to institute [facility] continuous dialysis today after placement of temporary hemodialysis catheter line by interventional radiology. They request to stop the bicarbonate drip at that time. * Acetaminophen level not significantly elevated, hepatitis panel nonreactive for hepatitis A, B and C * AST greater than 3000, ALT increased to 1869 today * Patient given 125 mg IV methylprednisolone in the emergency department, today T. Bili and PT indicate need for glucocorticoid treatment, will initiate predn isolone 40mg daily and add insulin with accuchecks given expected hyperglycemic response * Electrolyte protocol orders Daniel's Discriminant Function for Alcoholic Hepatitis from [employer] on 02/20 All calculations should be rechecked by clinician prior to use RESULT SUMMARY: 52.3 points Poor Prognosis. Discriminant Function > 32 points indicates poor prognosis and patient may benefit from glucocorticoid therapy. INPUTS: PT > 21.6 sec PT control/reference level > 11.1 sec Total bilirubin > 4 mg/dL (3) Acute respiratory failure Current Visit: Yes Status: Acute * Patient intubated and sedated in the emergency department secondary to declining respiratory status * Likely secondary to pneumonia as above * Repeat chest x-ray this morning shows worsening of the right basilar atelectasis versus effusion as well as new left-sided basilar atelectasis versus pneumonia, we will continue vancomycin and Zosyn, we will discontinue azithromycin today * MRSA nasal swab negative * ABG early this morning shows metabolic acidosis therefore vent settings were changed and subsequent ABG shows improvement in acidosis with pH up from 7.150-7.26, we will continue to monitor * Ventilator bundle in place * IV PPI for GI prophylaxis Qualifiers: Respiratory failure complication: unspecified whether with hypoxia or hypercapnia Qualified Code(s): J96.00 - Acute respiratory failure, unspecified whether with hypoxia or hypercapnia (4) Elevated troponin I level Current Visit: Yes Status: Acute * Likely acute respiratory failure and demand ischemia causing elevated troponin of 0.77, repeat troponin shows no change overnight * Cardiology consulted and appreciate their recommendations * Patient now has had 2 episodes of transient bradycardia down to the 30s. They yesterday required 1 dose of atropine. These episodes appear to last approximately 3 minutes. May be concerning for sick sinus syndrome given his acidosis. * Echocardiogram obtained by cardiology yesterday and pending. (5) Alcohol abuse Current Visit: Yes Status: Acute * No known history of cirrhosis per patient * Will continue with daily thiamine and folate supplementation * IV sedation with Versed for now * Glucocorticoid initiation for alcoholic hepatitis as above Objective PUL Vital signs: Last Vital Signs Temp 97.5 F L 02/21/19 03:00 Pulse 115 02/21/19 06:00 Resp 18 02/21/19 06:00 BP 110/86 02/21/19 06:00 Pulse Ox 100 02/21/19 05:51 Ventilator Settings Ventilator Settings: Ventilator Settings, Last 8 Hours Ventilator Tidal Volume 550 Setting Ventilator Tidal Volume 550 Setting Ventilator Tidal Volume 550 Setting Ventilator Tidal Volume 550 Setting Ventilator Tidal Volume 550 Setting Ventilator Tidal Volume 550 Setting Ventilator Tidal Volume 550 Setting Ventilator Tidal Volume 550 Setting Ventilator Tidal Volume 550 Setting Ventilator Tidal Volume 550 Setting Ventilator Tidal Volume 550 Setting Ventilator Respiratory Rate 18 Setting Ventilator Respiratory Rate 18 Setting Ventilator Respiratory Rate 18 Setting Ventilator Respiratory Rate 18 Setting Ventilator Respiratory Rate 18 Setting Ventilator Respiratory Rate 18 Setting Ventilator Respiratory Rate 18 Setting Ventilator Respiratory Rate 18 Setting Ventilator Respiratory Rate 18 Setting Ventilator Respiratory Rate 18 Setting Ventilator Respiratory Rate 18 Setting Actual Respiratory Rate 18 Actual Respiratory Rate 18 Actual Respiratory Rate 18 Actual Respiratory Rate 18 Actual Respiratory Rate 18 Actual Respiratory Rate 18 Actual Respiratory Rate 18 Actual Respiratory Rate 18 Actual Respiratory Rate 18 Actual Respiratory Rate 18 Positive End Expiratory 5 Pressure Positive End Expiratory 5 Pressure Positive End Expiratory 5 Pressure Positive End Expiratory 5 Pressure Positive End Expiratory 5 Pressure Positive End Expiratory 5 Pressure Positive End Expiratory 5 Pressure Positive End Expiratory 5 Pressure Positive End Expiratory 5 Pressure Positive End Expiratory 5 Pressure Positive End Expiratory 5 Pressure Peak Inspiratory Airway 26 Pressure Peak Inspiratory Airway 26 Pressure Peak Inspiratory Airway 26 Pressure Peak Inspiratory Airway 26 Pressure Peak Inspiratory Airway 29 Pressure Peak Inspiratory Airway 26 Pressure Peak Inspiratory Airway 25 Pressure Peak Inspiratory Airway 26 Pressure Peak Inspiratory Airway 25 Pressure Peak Inspiratory Airway 27 Pressure Results - Laboratory Findings CBC and BMP: 02/21/19 04:15 02/21/19 04:15 ABG ABG pH 7.12 pH Units (7.32-7.45) L* 02/21/19 05:51 ABG pCO2 56 mmHg (35-45) H 02/21/19 05:51 ABG pO2 105 mmHg (85-104) H 02/21/19 05:51 ABG O2 Saturation 95 % (95-98) 02/21/19 05:51 PT/INR, D-dimer PT 23.2 Seconds (9.4-12.1) H 02/21/19 04:15 Abnormal lab findings: Abnormal lab results WBC 16.5 K/mcL (4.3-11.1) H 02/21/19 04:15 MCV 100.8 fL (83.0-100.0) H 02/19/19 21:00 MCHC 31.3 g/dL (31.6-35.5) L 02/19/19 21:00 RDW 15.6 % (11.5-14.5) H 02/21/19 04:15 Plt Count 35 K/mcL (140-400) L D 02/21/19 04:15 Immature Gran % 5.1 % (0-4) H 02/21/19 04:15 14.5 K/mcL (1.6-8.9) H 02/21/19 04:15 0.5 K/mcL (0.6-4.6) L 02/21/19 04:15 Nucleated RBCs/100 WBC 0.2 /100 WBC (0) H 02/21/19 04:15 Marked Decrease (Normal) L 02/21/19 04:15 Immature Plt Fraction 10.7 % (1.1-6.1) H 02/21/19 04:15 1+ (Not Present) A 02/21/19 04:15 PT 23.2 Seconds (9.4-12.1) H 02/21/19 04:15 Heparin Anti-Xa, Unfract 0.00 IU/mL (0.30-0.70) L 02/19/19 13:50 ABG pH 7.12 pH Units (7.32-7.45) L* 02/21/19 05:51 ABG pCO2 56 mmHg (35-45) H 02/21/19 05:51 ABG pO2 105 mmHg (85-104) H 02/21/19 05:51 ABG HCO3 18 mEq/L (21-27) L 02/21/19 05:51 ABG Total CO2 19 mEq/L (20-26) L 02/20/19 04:43 ABG O2 Saturation 99 % (95-98) H 02/20/19 21:49 ABG Base Excess -12 mEq/L (-2 to 3) L 02/21/19 05:51 Sodium 135 mEq/L (136-145) L 02/21/19 04:15 Potassium 5.8 mEq/L (3.5-5.1) H 02/21/19 04:15 Chloride 97 mEq/L (98-107) L 02/20/19 09:02 Carbon Dioxide 21 mEq/L (23-29) L 02/21/19 04:15 BUN 75 mg/dL (6-20) H 02/21/19 04:15 4.87 mg/dL (0.70-1.30) H 02/21/19 04:15 Est GFR ( Amer) 15 (> 60) L 02/21/19 04:15 Est GFR (Non-Af Amer) 12 (> 60) L 02/21/19 04:15 Glucose 128 mg/dL (70-105) H 02/21/19 04:15 POC Glucose 141 mg/dL (70-99) H 02/20/19 23:27 304 (280-300) H 02/21/19 04:15 Lactic Acid 3.5 mmol/L (0.5-2.2) H 02/21/19 04:15 Calcium 7.0 mg/dL (8.6-10.3) L 02/21/19 04:15 Venous Ioniz Calcium 0.86 mmol/L (1.15-1.35) L 02/21/19 04:43 Phosphorus 7.2 mg/dL (2.7-4.5) H 02/21/19 04:15 13.2 mg/dL (0.3-1.0) H 02/21/19 04:15 7.3 mg/dL (0.0-0.2) H 02/21/19 04:15 5.9 mg/dL (0.0-1.2) H 02/21/19 04:15 AST > 3000 Units/L (13-39) H 02/21/19 04:15 ALT 2444 Units/L (7-52) H 02/21/19 04:15 118 Units/L (34-104) H 02/21/19 04:15 227 mcmol/L (16-53) H 02/19/19 17:30 0.77 ng/mL (< 0.04) H* 02/19/19 17:30 B-Natriuretic Peptide 3331 pg/mL (Less than 100) H 02/19/19 13:50 6.0 g/dL (6.4-8.9) L 02/21/19 04:15 2.7 g/dL (3.5-5.7) L 02/21/19 04:15 4.2 g/dL (2.4-3.5) H 02/19/19 13:50 0.8 (1.1-2.2) L 02/21/19 04:15 113 Units/L (11-82) H 02/19/19 13:50 Ur Specimen Adequacy See below A 02/19/19 15:10 Turbid (Clear) A 02/19/19 15:10 Ur Specific Reading 1.027 (1.010-1.025) H 02/19/19 15:10 >=1000 mg/dL (Neg-Trace) H 02/19/19 15:10 15 mg/dL (Negative) H 02/19/19 15:10 Large (Negative) H 02/19/19 15:10 Moderate (Negative) H 02/19/19 15:10 2.0 mg/dL (Normal) H 02/19/19 15:10 Ur Leukocyte Esterase Small (Negative) H 02/19/19 15:10 5-15 per hpf (0-3) H 02/19/19 15:10 TNTC per hpf (0-3) H 02/19/19 15:10 Ur Squamous Epith Cells Many per lpf (None-Few) H 02/19/19 15:10 Ur Culture Indicated? YES (NO) A 02/19/19 15:10 Positive ng/mL (Yfgnnx=004) H 02/19/19 21:50 Acetaminophen < 10 mcg/mL (10-20) L 02/19/19 13:50 U Benzodiazepines Scrn Positive ng/mL (Umeetr=133) H 02/19/19 21:50 U Marijuana (THC) Screen Positive ng/mL (Cutoff = 50) H 02/19/19 21:50 - Microbiology Findings Microbiology Findings: Microbiology, Last 48 Hours 02/19/19 13:50 Blood Culture - Preliminary Peripheral Venipuncture Gram Positive Cocci 02/19/19 15:10 Urine Culture - Final Urine,Catheterized (Straight) No growth. 02/19/19 13:50 Blood Culture - Preliminary Peripheral Venipuncture Culture is incubating and being continuously monitored for growth. Final report to follow. 02/19/19 14:45 Sputum Culture - Final Sputum - Clinical Findings Intake & Output: Intake & Output 02/20/19 02/20/19 02/21/19 15:59 23:59 07:59 Intake Total 1951 / 7443.2 647 / 7443.2 418 / 418 Output Total 317 / 1590 530 / 1590 614 / 614 Balance 1634 / 5853.2 117 / 5853.2 -196 / -196 Weight 76 kg 76 kg 76 kg Consult Discharge Plan - Plan Referrals: NONE,PCP [Primary Care Provider] -
[2019-02-21] MEDS: Chlorhexidine Rinse 15 ML MOUTHWASH MM SCH (07:17)
[2019-02-21] MEDS: PrednisoLONE Oral Soln 15 MG/5 ML UDC PO SCH (07:17)
[2019-02-21] MEDS: Pantoprazole 40 MG VIAL IVP SCH (07:17)
[2019-02-21] MEDS: Piperacillin/Tazobactam 3.375 GM in 0.9 % Sodium Chloride Mini Bag 100 ML IVPB SCH (07:18)
[2019-02-21] MEDS ORDERED: Sodium Bicarbonate 50 MEQ/50 ML VIAL IVP ONE ×2 (08:08→08:44)
[2019-02-21] MEDS ORDERED: Sodium Bicarbonate 50 MEQ/50 ML VIAL ONE (08:39)
[2019-02-21] MEDS ORDERED: Phenylephrine 50 MG in D5% in Water 250 ML IVC SCH (08:45)
[2019-02-21] MEDS ORDERED: Norepinephrine 16 MG in D5% in Water 500 ML IVC SCH (08:45)
[2019-02-21] MEDS ORDERED: Thiamine (B-1) 100 MG, Folic Acid 1 MG in D5% in Water 50 ML IVPB SCH (09:00)
--- NOTE | 2019-02-21 09:41 | Cardiology Progress Note ---
Date of Encounter: 02/21/19 Time of Encounter: 09:39 Assessment and Plan (1) Elevated troponin I level Current Visit: Yes Status: Acute - Patient presented with elevated troponin level at 0.77, subsequent level was 0.77 - Initially started on heparin drip, but this was stopped due to impaired renal function - Etiology unknown; likely multiple contributing factors including demand ischemia, septic shock, acute renal failure - Patient also noted to have an elevated BNP on presentation - Echocardiogram demonstrated ejection fraction of 20% with findings suggestive of cardiomyopathy Plan: - Unable to start beta rosmery at this time due to shock - Unable to initiate heparin drip due to renal failure - Continuous telemetry - Continue supportive care for the time being (2) Cardiomyopathy Current Visit: Yes Status: Acute - TTE demonstrated ejection fraction of 20%, LV basal segments more dynamic and wall motion and thickening compared other segments suggestive of stress-induced cardiomyopathy, mild LV diastolic dysfunction, RV dilation with moderate systolic dysfunction, severe pulmonary HTN, mild MR, mild to moderate TR - Etiology unknown at this time Plan: - Continue supportive therapy (3) Septic shock Current Visit: Yes Status: Acute - Patient met 4/4 SIRS criteria with tachycardia, tachypnea, fever, and leukocytosis - Also had hypotension with systolic blood pressures in the 70s to 80s and lacti c acidosis at 9.3 - Subsequent lactate levels were 5.6, 5.8, and 4.8 - Imaging performed in the emergency department demonstrated the presence of a possible RLL and LLL PNA - Patient developed acute respiratory failure requiring intubation - Currently on levophed for pressure support - Patient noted to have a significant drop in platelet count, dropping from 137 to 35 in last 24 hours Plan: - Continue vancomycin, Zosyn for pneumonia - Nephrology is following for acute renal failure - Continue supportive care (4) Hepatorenal failure Current Visit: Yes Status: Acute - Patient presented with a severely elevated creatinine at 6.85; previous creatinine was 0.89 on 01/31/18 - Labs demonstrated elevated AST greater than 3000 - Etiology unknown at this time; possibly secondary to septic shock Plan: - Electrolyte protocol in place; replace electrolytes as needed - Nephrology following for [facility] - Continuous telemetry - Strict I&Os, daily weights - Continue antibiotics as documented above (5) Bradycardia Current Visit: Yes Status: Acute - Patient developed an episode of bradycardia earlier this morning - His heart rate dropped from the 90s to 30s - Episode lasted approximately 3 minutes, then return to normal - Telemetry strip reviewed; no evidence of heart block appreciated - Multiple potential etiologies including metabolic derangements due to h epatorenal failure and sepsis - Continue supportive care and telemetry (6) Acute respiratory failure Current Visit: Yes Status: Acute - Patient developed acute respiratory failure requiring intubation in the emergency department - Etiology is likely secondary to pneumonia as demonstrated on imaging - Currently intubated and sedated on mechanical ventilation - Management per pulmonology/critical care team Qualifiers: Respiratory failure complication: unspecified whether with hypoxia or hypercapnia Qualified Code(s): J96.00 - Acute respiratory failure, unspecified whether with hypoxia or hypercapnia (7) Alcohol abuse Current Visit: Yes Status: Acute - Patient has a known prior history of alcohol abuse - Per family, patients last drink was 3 days prior to presentation - Continue thiamine, folate supplementation Discussion w patient/family: The assessment and plan as outlined above was discussed with the patient and/or family members who expressed understanding and agreement. All questions were answered. Thank you for involving us in the care of your patient. Please call with any questions. Objective Vital Signs, Last 4 Hours Temp Pulse Resp BP Pulse Ox 02/21/19 09:00 114 22 113/98 02/21/19 08:00 98 F 117 22 63/53 02/21/19 07:15 18 101/82 99 02/21/19 07:00 120 18 101/82 02/21/19 06:00 115 18 110/86 02/21/19 05:51 18 100 Results 02/21/19 04:15 02/21/19 04:15 Lab Results 02/20/19 02/20/19 02/20/19 09:02 22:07 Unknown WBC Hgb Hct Plt Count INR Sodium 137 135 L Potassium 5.3 H 5.6 H Chloride 97 L 100 Carbon Dioxide 24 22 L BUN 98 H 75 H Creatinine 6.57 H 5.14 H Glucose 311 H 196 H Calcium 6.2 L 6.6 L Magnesium 2.1 2.4 Total Bilirubin 3.6 H AST > 3000 H ALT 1914 H Alkaline Phosphatase 81 02/21/19 02/21/19 02/21/19 04:15 04:15 04:15 WBC 16.5 H Hgb 15.5 Hct 46.7 Plt Count 35 L D INR 2.0 Sodium 135 L Potassium 5.8 H Chloride 100 Carbon Dioxide 21 L BUN 75 H Creatinine 4.87 H Glucose 128 H Calcium 7.0 L Magnesium 2.5 Total Bilirubin AST ALT Alkaline Phosphatase 02/21/19 04:15 WBC Hgb Hct Plt Count INR Sodium Potassium Chloride Carbon Dioxide BUN Creatinine Glucose Calcium Magnesium Total Bilirubin 13.2 H AST > 3000 H ALT 2444 H Alkaline Phosphatase 118 H Consult Discharge Plan - Plan Referrals: NONE,PCP [Primary Care Provider] -
[2019-02-21] MEDS ORDERED: D10% in Water 500 ML ONE (10:28)
[2019-02-21 10:38] VITALS: BP 58/38
--- NOTE | 2019-02-21 11:07 | Discharge Summary ---
<Yossi Hendricks S - Last Filed: 02/21/19 13:47> Orders not resulted at time of discharge: Pending orders 02/19/19 13:50 Culture,Blood [BC] Stat 02/19/19 23:29 EKG [ECG 12 lead ECG] [ECG] Stat 02/21/19 17:45 Arterial Blood Gas DAILY 02/22/19 04:00 BMP [Basic Metabolic Panel] AM 0400 Complete Blood Count [HEME] AM 0400 Ionized Calcium,venous blood AM 0400 Magnesium AM 0400 Phosphorous AM 0400 02/22/19 17:45 Arterial Blood Gas DAILY 02/23/19 04:00 BMP [Basic Metabolic Panel] AM 0400 Complete Blood Count [HEME] AM 0400 Ionized Calcium,venous blood AM 0400 Magnesium AM 0400 Phosphorous AM 0400 02/23/19 17:45 Arterial Blood Gas DAILY 02/24/19 04:00 BMP [Basic Metabolic Panel] AM 0400 Complete Blood Count [HEME] AM 0400 Ionized Calcium,venous blood AM 0400 Magnesium AM 0400 Phosphorous AM 0400 02/24/19 17:45 Arterial Blood Gas DAILY 02/25/19 04:00 BMP [Basic Metabolic Panel] AM 0400 Complete Blood Count [HEME] AM 0400 Ionized Calcium,venous blood AM 0400 Magnesium AM 0400 Phosphorous AM 0400 02/25/19 17:45 Arterial Blood Gas DAILY 02/26/19 04:00 BMP [Basic Metabolic Panel] AM 0400 Complete Blood Count [HEME] AM 0400 Ionized Calcium,venous blood AM 0400 Magnesium AM 0400 Phosphorous AM 0400 02/26/19 17:45 Arterial Blood Gas DAILY 02/27/19 04:00 Ionized Calcium,venous blood AM 0400 Phosphorous AM 0400 02/27/19 17:45 Arterial Blood Gas DAILY 02/28/19 17:45 Arterial Blood Gas DAILY Date of Encounter: 02/21/19 - Discharge Medications Prescriptions: No Action No Known Home Drugs 1 each .ROUTE AD each Home Medications: No Known Home Drugs 02/19/19 [History] Allergies/Adverse Reactions: Allergy/AdvReac Type Severity Reaction Status Date / Time No Known Allergies Allergy Verified 05/08/15 19:12 Labs on day of discharge: Labs from last 24 hours 02/21/19 02/21/19 02/21/19 09:31 08:57 05:51 WBC RBC Hgb Hct MCV MCH MCHC RDW Plt Count MPV Immature Gran % Seg Neutrophils % Lymphocytes % Monocytes % Eosinophils % Basophils % Neutrophils # Lymphocytes # Monocytes # Eosinophils # Basophils # Nucleated RBCs/100 WBC Platelet Estimate Immature Plt Fraction Poikilocytosis PT INR Sample Site R Radial ABG pH 7.12 L* ABG pCO2 56 H ABG pO2 105 H ABG HCO3 18 L ABG Total CO2 20 ABG O2 Saturation 95 ABG Base Excess -12 L Johnny Test Respiration Rate 18 O2 Delivery Device Adult Vent Inspired O2 60.0 Tidal Volume 550 PEEP 5 Sodium Potassium Chloride Carbon Dioxide BUN Creatinine Est GFR ( Amer) Est GFR (Non-Af Amer) BUN/Creatinine Ratio Glucose POC Glucose Calculated Osmolality Lactic Acid 7.0 H* Calcium Venous Ioniz Calcium Phosphorus Magnesium Total Bilirubin Direct Bilirubin Indirect Bilirubin AST ALT Alkaline Phosphatase Serum Total Protein Albumin Globulin Albumin/Globulin Ratio Random Vancomycin Specimen Rejected Hemolyzed Person Notif of Mirna cintrony ivan 02/21/19 02/21/19 02/21/19 04:43 04:15 04:15 WBC RBC Hgb Hct MCV MCH MCHC RDW Plt Count MPV Immature Gran % Seg Neutrophils % Lymphocytes % Monocytes % Eosinophils % Basophils % Neutrophils # Lymphocytes # Monocytes # Eosinophils # Basophils # Nucleated RBCs/100 WBC Platelet Estimate Immature Plt Fraction Poikilocytosis PT INR Sample Site ABG pH ABG pCO2 ABG pO2 ABG HCO3 ABG Total CO2 ABG O2 Saturation ABG Base Excess Johnny Test Respiration Rate O2 Delivery Device Inspired O2 Tidal Volume PEEP Sodium Potassium Chloride Carbon Dioxide BUN Creatinine Est GFR ( Amer) Est GFR (Non-Af Amer) BUN/Creatinine Ratio Glucose POC Glucose Calculated Osmolality Lactic Acid 3.5 H Calcium Venous Ioniz Calcium 0.86 L Phosphorus Magnesium Total Bilirubin 13.2 H Direct Bilirubin 7.3 H Indirect Bilirubin 5.9 H AST > 3000 H ALT 2444 H Alkaline Phosphatase 118 H Serum Total Protein 6.0 L Albumin 2.7 L Globulin 3.3 Albumin/Globulin Ratio 0.8 L Random Vancomycin Specimen Rejected Person Notif of Cridarshan 02/21/19 02/21/19 02/21/19 04:15 04:15 04:15 WBC RBC Hgb Hct MCV MCH MCHC RDW Plt Count MPV Immature Gran % Seg Neutrophils % Lymphocytes % Monocytes % Eosinophils % Basophils % Neutrophils # Lymphocytes # Monocytes # Eosinophils # Basophils # Nucleated RBCs/100 WBC Platelet Estimate Immature Plt Fraction Poikilocytosis PT 23.2 H INR 2.0 Sample Site ABG pH ABG pCO2 ABG pO2 ABG HCO3 ABG Total CO2 ABG O2 Saturation ABG Base Excess Johnny Test Respiration Rate O2 Delivery Device Inspired O2 Tidal Volume PEEP Sodium 135 L Potassium 5.8 H Chloride 100 Carbon Dioxide 21 L BUN 75 H Creatinine 4.87 H Est GFR ( Amer) 15 L Est GFR (Non-Af Amer) 12 L BUN/Creatinine Ratio 15 Glucose 128 H POC Glucose Calculated Osmolality 304 H Lactic Acid Calcium 7.0 L Venous Ioniz Calcium Phosphorus 7.2 H Magnesium 2.5 Total Bilirubin Direct Bilirubin Indirect Bilirubin AST ALT Alkaline Phosphatase Serum Total Protein Albumin Globulin Albumin/Globulin Ratio Random Vancomycin 14 Specimen Rejected Person Notif of [facility] 02/21/19 02/20/19 02/20/19 04:15 Unknown 23:27 WBC 16.5 H RBC 4.97 Hgb 15.5 Hct 46.7 MCV 94.0 MCH 31.2 MCHC 33.2 RDW 15.6 H Plt Count 35 L D MPV TNP Immature Gran % 5.1 H Seg Neutrophils % 87.7 Lymphocytes % 2.9 Monocytes % 3.9 Eosinophils % 0.0 Basophils % 0.4 Neutrophils # 14.5 H Lymphocytes # 0.5 L Monocytes # 0.6 Eosinophils # 0.0 Basophils # 0.1 Nucleated RBCs/100 WBC 0.2 H Platelet Estimate Marked Decrease L Immature Plt Fraction 10.7 H Poikilocytosis 1+ A PT INR Sample Site ABG pH ABG pCO2 ABG pO2 ABG HCO3 ABG Total CO2 ABG O2 Saturation ABG Base Excess Johnny Test Respiration Rate O2 Delivery Device Inspired O2 Tidal Volume PEEP Sodium 135 L Potassium 5.6 H Chloride 100 Carbon Dioxide 22 L BUN 75 H Creatinine 5.14 H Est GFR ( Amer) 14 L Est GFR (Non-Af Amer) 12 L BUN/Creatinine Ratio 15 Glucose 196 H POC Glucose 141 H Calculated Osmolality 308 H Lactic Acid Calcium 6.6 L Venous Ioniz Calcium Phosphorus Magnesium Total Bilirubin Direct Bilirubin Indirect Bilirubin AST ALT Alkaline Phosphatase Serum Total Protein Albumin Globulin Albumin/Globulin Ratio Random Vancomycin Specimen Rejected Person Notif of [facility] 02/20/19 02/20/19 02/20/19 22:18 22:07 21:49 WBC RBC Hgb Hct MCV MCH MCHC RDW Plt Count MPV Immature Gran % Seg Neutrophils % Lymphocytes % Monocytes % Eosinophils % Basophils % Neutrophils # Lymphocytes # Monocytes # Eosinophils # Basophils # Nucleated RBCs/100 WBC Platelet Estimate Immature Plt Fraction Poikilocytosis PT INR Sample Site R Radial ABG pH 7.21 L ABG pCO2 55 H ABG pO2 197 H ABG HCO3 22 ABG Total CO2 24 ABG O2 Saturation 99 H ABG Base Excess -7 L Johnny Test Positive Respiration Rate O2 Delivery Device Adult Vent Inspired O2 60.0 Tidal Volume PEEP 5 Sodium Potassium Chloride Carbon Dioxide BUN Creatinine Est GFR ( Amer) Est GFR (Non-Af Amer) BUN/Creatinine Ratio Glucose POC Glucose Calculated Osmolality Lactic Acid Calcium Venous Ioniz Calcium 0.80 L Phosphorus 7.1 H Magnesium 2.4 Total Bilirubin Direct Bilirubin Indirect Bilirubin AST ALT Alkaline Phosphatase Serum Total Protein Albumin Globulin Albumin/Globulin Ratio Random Vancomycin Specimen Rejected Person Notif of Crit 02/20/19 02/20/19 02/20/19 20:51 15:08 11:06 WBC RBC Hgb Hct MCV MCH MCHC RDW Plt Count MPV Immature Gran % Seg Neutrophils % Lymphocytes % Monocytes % Eosinophils % Basophils % Neutrophils # Lymphocytes # Monocytes # Eosinophils # Basophils # Nucleated RBCs/100 WBC Platelet Estimate Immature Plt Fraction Poikilocytosis PT INR Sample Site ABG pH ABG pCO2 ABG pO2 ABG HCO3 ABG Total CO2 ABG O2 Saturation ABG Base Excess Johnny Test Respiration Rate O2 Delivery Device Inspired O2 Tidal Volume PEEP Sodium Potassium Chloride Carbon Dioxide BUN Creatinine Est GFR ( Amer) Est GFR (Non-Af Amer) BUN/Creatinine Ratio Glucose POC Glucose 149 H 181 H 294 H Calculated Osmolality Lactic Acid Calcium Venous Ioniz Calcium Phosphorus Magnesium Total Bilirubin Direct Bilirubin Indirect Bilirubin AST ALT Alkaline Phosphatase Serum Total Protein Albumin Globulin Albumin/Globulin Ratio Random Vancomycin Specimen Rejected Person Notif of Crit 02/20/19 05:47 WBC RBC Hgb Hct MCV MCH MCHC RDW Plt Count MPV Immature Gran % Seg Neutrophils % Lymphocytes % Monocytes % Eosinophils % Basophils % Neutrophils # Lymphocytes # Monocytes # Eosinophils # Basophils # Nucleated RBCs/100 WBC Platelet Estimate Immature Plt Fraction Poikilocytosis PT INR Sample Site ABG pH ABG pCO2 ABG pO2 ABG HCO3 ABG Total CO2 ABG O2 Saturation ABG Base Excess Johnny Test Respiration Rate O2 Delivery Device Inspired O2 Tidal Volume PEEP Sodium Potassium Chloride Carbon Dioxide BUN Creatinine Est GFR ( Amer) Est GFR (Non-Af Amer) BUN/Creatinine Ratio Glucose POC Glucose 239 H Calculated Osmolality Lactic Acid Calcium Venous Ioniz Calcium Phosphorus Magnesium Total Bilirubin Direct Bilirubin Indirect Bilirubin AST ALT Alkaline Phosphatase Serum Total Protein Albumin Globulin Albumin/Globulin Ratio Random Vancomycin Specimen Rejected Person Notif of Crit Preliminary micro results at discharge 02/19/19 13:50 Blood Culture - Preliminary Peripheral Venipuncture Gram Positive Cocci Gram Positive Rods 02/19/19 13:50 Blood Culture - Preliminary Peripheral Venipuncture Culture is incubating and being continuously monitored for growth. Final report to follow. - Impressions ITS Impressions Chest CT 02/19/19 00:00 IMPRESSION: Emphysema with right lower lobe pneumonia. Recommend follow-up until resolution. Left lower lobe atelectasis or developing infection. Left upper lobe scarring. Cardiomegaly with small pericardial effusion. D/ / 02/19/2019 15:16:18 Yanick Swartz MD / [facility] Interpreting Provider: Yanick Swartz MD Chest X-Ray 02/19/19 13:47 IMPRESSION: New right basilar airspace disease concerning for pneumonia. Follow-up chest radiographs recommended to ensure resolution. Interval resolution of left basilar pneumonia since the 2015 exam. D/ / Hai Torres MD / Hai Torres MD Interpreting Provider: Hai Torres MD Abdomen/Pelvis CT 02/19/19 13:55 IMPRESSION: 1. No acute process within the abdomen or pelvis within the limitations of a noncontrast study. 2. Cholelithiasis. 3. Stable prostatomegaly. 4. Mild right lower lobe mucus plugging with curvilinear and consolidative opacities within bilateral lung bases, most notable within the right lower lobe, representing either multifocal pneumonia or aspiration. Clinical correlation is advised. Please see today's chest CT report for further characterization. D/ / 02/19/2019 15:14:58 Liam Acosta MD / Sanam Hooker Interpreting Provider: Liam Acosta MD Head CT 02/19/19 14:18 IMPRESSION: 1.No acute intracranial abnormality. D/ / Marquise Larsen MD / Marquise Larsen MD Interpreting Provider: Marquise Larsen MD Chest X-Ray 02/19/19 16:11 IMPRESSION: 1. Right basilar airspace disease again noted suggesting pneumonia 2. Endotracheal tube place just above the miley D/ / Tonio Francis MD / Tonio Francis MD Interpreting Provider: Tonio Francis MD Guidance Ultrasound 02/20/19 00:00 IMPRESSION: Successful ultrasound guided non-tunneled dialysis catheter placement. D/ / Sukhi Iverson MD / Sukhi Iverson MD Interpreting Provider: Sukhi Iverson MD Insertion Non-Tunneled Catheter 02/20/19 00:00 IMPRESSION: Successful ultrasound guided non-tunneled dialysis catheter placement. D/ / Sukhi Iverson MD / Sukhi Iverson MD Interpreting Provider: Sukhi Iverson MD Chest X-Ray 02/20/19 04:00 IMPRESSION: Increasing right basilar and new left basilar atelectasis and/or pneumonia. Left pleural effusion has developed. D/ / Uriah Wong MD / Uriah Wong MD Interpreting Provider: Uriah Wong MD Chest X-Ray 02/20/19 10:19 IMPRESSION: 1. The newly placed temporary right IJ hemodialysis catheter is appropriately positioned, with the distal tip in the central SVC. No pneumothorax. 2. Stable bibasilar pneumonia and small left pleural effusion. D/ / Liam Gray MD / Liam Gray MD Interpreting Provider: Liam Gray MD Echocardiogram 02/20/19 10:39 Impressions: Sinus tachycardia. LVEF 20%. LV basal segments are more dynamic in wall motion/thickening when compared to other segments suggesting possibility of a stress-induced cardiomyopathy. Recommend clinical correlation. Mild left ventricular diastolic dysfunction. Definity echo contrast was used. There is no LV thrombus. Right ventricle is dilated with moderate systolic dysfunction. Mild mitral regurgitation. Mild-moderate tricuspid regurgitation. Severe pulmonary hypertension. No prior Echo for comparison. Left Ventricular Wall Motion: Rest Echo Findings The apex, apical inferior, mid inferior, apical anterior, mid anterior, apical septal, mid inferior septal, basal inferior septal, apical lateral, mid anterior lateral, mid anterior septal and mid inferior lateral arreola were hypokinetic. All other wall segments showed normal motion. Findings: Study Quality * Technically adequate exam. ECG Findings * Sinus tachycardia. Left Ventricle * LVEF 20%. * Mild left ventricular diastolic dysfunction. * Definity echo contrast was used. * There is no LV thrombus. * LV chamber size and wall thickness measurements are normal. Right Ventricle * Right ventricle is dilated with moderate systolic dysfunction. Left Atrium * Normal left atrial size. Right Atrium * Moderately dilated right atrium. Aortic Valve * No aortic regurgitation. * Aortic valve not well visualized. * No aortic stenosis. Mitral Valve * Normal mitral valve structure. * No mitral stenosis. * Mild mitral regurgitation. Tricuspid Valve * Mildly thickened leaflets. * No tricuspid stenosis. * Mild-moderate tricuspid regurgitation. * Estimated RA pressure is 8 mmHg. * Estimated RVSP is 67 mmHg. * Severe pulmonary hypertension. Pulmonic Valve * Pulmonic valve is not well visualized. * No pulmonic stenosis. * No pulmonic regurgitation. Pulmonary Artery * Pulmonary artery not well visualized. Aorta * Normally sized aortic root. Pericardium * There is a trivial pericardial effusion present. * There is no echocardiographic evidence of tamponade. Interatrial Septum * No evidence of PFO by color Doppler. IVC * The IVC is not dilated. * < 50% respiratory change. Chest X-Ray 02/21/19 04:00 IMPRESSION: Grossly stable bilateral atelectasis and/or pneumonia with new right pleural effusion. D/ / Uriah Wong MD / Uriah Wong MD Interpreting Provider: Uriah Wong MD Date of admission: 02/19/19 19:00 Primary care physician: PCP NONE Consults: 02/19/19 14:58 Consult to Cardiology [CONS] Stat Comment: Consulting Provider: Cardiology Jessica Reason for Consult: NSTEMI Time Notified: 14:59 Call Completed: Yes 02/19/19 15:21 Consult to Nephrology [CONS] Stat Consulting Provider: Kidney Carlton/GEN/AMADEO/ANAIS Reason for Consult: Kidney failure Time Notified: 15:22 Call Completed: Yes 02/20/19 07:11 Consult to Interventional Radiology [CONS] Routine Consulting Provider: Radiology Interventional Cols Reason for Consult: Please eval for placement of a temporary HD catheter. Thank you. Call Completed: Yes 02/20/19 14:12 Consult to Organ Assembler [CONS] Routine Reason for SW Consult: family request for PoA discussion - Patient Status Disposition: - Discharge Instructions Follow Up With: NONE,PCP [Primary Care Provider] - - Hospital Course Hospital course: Mr. Blankenship is a 58 year old male presented with the acute liver failure most likely due to alcoholic hepatitis/shock liver developed septic shock with wors ening lactic acidosis with progressive worsening of hepatocellular failure with worsening lactic acidosis with mixed both respiratory and metabolic acidosis patient shall got worse patient was requiring multiple vasopressor therapy with refractory hypotension patient went into ventricular tachycardia and eventually degenerated to pulseless electrical activity and asystole patient was coded twice for score was around 15 minutes with return of spontaneous circulation second code was almost 30-40 minutes is no return of spontaneous circulation patient family change the goals of care CODE BLUE was called off once the decision was made. Family support was provided by the ICU team. - Time Spent with Patient Total time spent providing and/or coordinating discharge services: <Minnie Patrick - Last Filed: 02/21/19 14:32> Orders not resulted at time of discharge: Pending orders 02/19/19 13:50 Culture,Blood [BC] Stat 02/19/19 23:29 EKG [ECG 12 lead ECG] [ECG] Stat 02/21/19 11:00 US liver [US] Stat US abd pelvis doppler [US] Stat 02/21/19 17:45 Arterial Blood Gas DAILY 02/22/19 04:00 BMP [Basic Metabolic Panel] AM 0400 Complete Blood Count [HEME] AM 0400 Ionized Calcium,venous blood AM 0400 Magnesium AM 0400 Phosphorous AM 0400 02/22/19 17:45 Arterial Blood Gas DAILY 02/23/19 04:00 BMP [Basic Metabolic Panel] AM 0400 Complete Blood Count [HEME] AM 0400 Ionized Calcium,venous blood AM 0400 Magnesium AM 0400 Phosphorous AM 0400 02/23/19 17:45 Arterial Blood Gas DAILY 02/24/19 04:00 BMP [Basic Metabolic Panel] AM 0400 Complete Blood Count [HEME] AM 0400 Ionized Calcium,venous blood AM 0400 Magnesium AM 0400 Phosphorous AM 0400 02/24/19 17:45 Arterial Blood Gas DAILY 02/25/19 04:00 BMP [Basic Metabolic Panel] AM 0400 Complete Blood Count [HEME] AM 0400 Ionized Calcium,venous blood AM 0400 Magnesium AM 0400 Phosphorous AM 0400 02/25/19 17:45 Arterial Blood Gas DAILY 02/26/19 04:00 BMP [Basic Metabolic Panel] AM 0400 Complete Blood Count [HEME] AM 0400 Ionized Calcium,venous blood AM 0400 Magnesium AM 0400 Phosphorous AM 0400 02/26/19 17:45 Arterial Blood Gas DAILY 02/27/19 04:00 Ionized Calcium,venous blood AM 0400 Phosphorous AM 0400 02/27/19 17:45 Arterial Blood Gas DAILY 02/28/19 17:45 Arterial Blood Gas DAILY Date of Encounter: 02/21/19 Time of Encounter: 11:04 - Discharge Diagnosis (1) Septic shock Priority: Secondary Status: Acute (2) Hepatorenal failure Priority: Primary Status: Acute (3) Acute respiratory failure Priority: Secondary Status: Acute Qualifiers: Respiratory failure complication: unspecified whether with hypoxia or hype rcapnia Qualified Code(s): J96.00 - Acute respiratory failure, unspecified whether with hypoxia or hypercapnia (4) Elevated troponin I level Priority: Secondary Status: Acute (5) Alcohol abuse Priority: Secondary Status: Acute Labs on day of discharge: Labs from last 24 hours 02/21/19 02/21/19 02/21/19 09:31 08:57 05:51 WBC RBC Hgb Hct MCV MCH MCHC RDW Plt Count MPV Immature Gran % Seg Neutrophils % Lymphocytes % Monocytes % Eosinophils % Basophils % Neutrophils # Lymphocytes # Monocytes # Eosinophils # Basophils # Nucleated RBCs/100 WBC Platelet Estimate Immature Plt Fraction Poikilocytosis PT INR Sample Site R Radial ABG pH 7.12 L* ABG pCO2 56 H ABG pO2 105 H ABG HCO3 18 L ABG Total CO2 20 ABG O2 Saturation 95 ABG Base Excess -12 L Johnny Test Respiration Rate 18 O2 Delivery Device Adult Vent Blood Gas Modality Inspired O2 60.0 Tidal Volume 550 PEEP 5 Sodium Potassium Chloride Carbon Dioxide BUN Creatinine Est GFR ( Amer) Est GFR (Non-Af Amer) BUN/Creatinine Ratio Glucose POC Glucose Calculated Osmolality Lactic Acid 7.0 H* Calcium Venous Ioniz Calcium Phosphorus Magnesium Total Bilirubin Direct Bilirubin Indirect Bilirubin AST ALT Alkaline Phosphatase Serum Total Protein Albumin Globulin Albumin/Globulin Ratio Random Vancomycin Specimen Rejected Hemolyzed Person Notif of Mirna love 02/21/19 02/21/19 02/21/19 04:43 04:15 04:15 WBC RBC Hgb Hct MCV MCH MCHC RDW Plt Count MPV Immature Gran % Seg Neutrophils % Lymphocytes % Monocytes % Eosinophils % Basophils % Neutrophils # Lymphocytes # Monocytes # Eosinophils # Basophils # Nucleated RBCs/100 WBC Platelet Estimate Immature Plt Fraction Poikilocytosis PT INR Sample Site ABG pH ABG pCO2 ABG pO2 ABG HCO3 ABG Total CO2 ABG O2 Saturation ABG Base Excess Johnny Test Respiration Rate O2 Delivery Device Blood Gas Modality Inspired O2 Tidal Volume PEEP Sodium Potassium Chloride Carbon Dioxide BUN Creatinine Est GFR ( Amer) Est GFR (Non-Af Amer) BUN/Creatinine Ratio Glucose POC Glucose Calculated Osmolality Lactic Acid 3.5 H Calcium Venous Ioniz Calcium 0.86 L Phosphorus Magnesium Total Bilirubin 13.2 H Direct Bilirubin 7.3 H Indirect Bilirubin 5.9 H AST > 3000 H ALT 2444 H Alkaline Phosphatase 118 H Serum Total Protein 6.0 L Albumin 2.7 L Globulin 3.3 Albumin/Globulin Ratio 0.8 L Random Vancomycin Specimen Rejected Person Notif of [facility] 02/21/19 02/21/19 02/21/19 04:15 04:15 04:15 WBC RBC Hgb Hct MCV MCH MCHC RDW Plt Count MPV Immature Gran % Seg Neutrophils % Lymphocytes % Monocytes % Eosinophils % Basophils % Neutrophils # Lymphocytes # Monocytes # Eosinophils # Basophils # Nucleated RBCs/100 WBC Platelet Estimate Immature Plt Fraction Poikilocytosis PT 23.2 H INR 2.0 Sample Site ABG pH ABG pCO2 ABG pO2 ABG HCO3 ABG Total CO2 ABG O2 Saturation ABG Base Excess Johnny Test Respiration Rate O2 Delivery Device Blood Gas Modality Inspired O2 Tidal Volume PEEP Sodium 135 L Potassium 5.8 H Chloride 100 Carbon Dioxide 21 L BUN 75 H Creatinine 4.87 H Est GFR ( Amer) 15 L Est GFR (Non-Af Amer) 12 L BUN/Creatinine Ratio 15 Glucose 128 H POC Glucose Calculated Osmolality 304 H Lactic Acid Calcium 7.0 L Venous Ioniz Calcium Phosphorus 7.2 H Magnesium 2.5 Total Bilirubin Direct Bilirubin Indirect Bilirubin AST ALT Alkaline Phosphatase Serum Total Protein Albumin Globulin Albumin/Globulin Ratio Random Vancomycin 14 Specimen Rejected Person Notif of Cri 02/21/19 02/20/19 02/20/19 04:15 Unknown 23:27 WBC 16.5 H RBC 4.97 Hgb 15.5 Hct 46.7 MCV 94.0 MCH 31.2 MCHC 33.2 RDW 15.6 H Plt Count 35 L D MPV TNP Immature Gran % 5.1 H Seg Neutrophils % 87.7 Lymphocytes % 2.9 Monocytes % 3.9 Eosinophils % 0.0 Basophils % 0.4 Neutrophils # 14.5 H Lymphocytes # 0.5 L Monocytes # 0.6 Eosinophils # 0.0 Basophils # 0.1 Nucleated RBCs/100 WBC 0.2 H Platelet Estimate Marked Decrease L Immature Plt Fraction 10.7 H Poikilocytosis 1+ A PT INR Sample Site ABG pH ABG pCO2 ABG pO2 ABG HCO3 ABG Total CO2 ABG O2 Saturation ABG Base Excess Johnny Test Respiration Rate O2 Delivery Device Blood Gas Modality Inspired O2 Tidal Volume PEEP Sodium 135 L Potassium 5.6 H Chloride 100 Carbon Dioxide 22 L BUN 75 H Creatinine 5.14 H Est GFR ( Amer) 14 L Est GFR (Non-Af Amer) 12 L BUN/Creatinine Ratio 15 Glucose 196 H POC Glucose 141 H Calculated Osmolality 308 H Lactic Acid Calcium 6.6 L Venous Ioniz Calcium Phosphorus Magnesium Total Bilirubin Direct Bilirubin Indirect Bilirubin AST ALT Alkaline Phosphatase Serum Total Protein Albumin Globulin Albumin/Globulin Ratio Random Vancomycin Specimen Rejected Person Notif of Crit 02/20/19 02/20/19 02/20/19 22:18 22:07 21:49 WBC RBC Hgb Hct MCV MCH MCHC RDW Plt Count MPV Immature Gran % Seg Neutrophils % Lymphocytes % Monocytes % Eosinophils % Basophils % Neutrophils # Lymphocytes # Monocytes # Eosinophils # Basophils # Nucleated RBCs/100 WBC Platelet Estimate Immature Plt Fraction Poikilocytosis PT INR Sample Site R Radial ABG pH 7.21 L ABG pCO2 55 H ABG pO2 197 H ABG HCO3 22 ABG Total CO2 24 ABG O2 Saturation 99 H ABG Base Excess -7 L Johnny Test Positive Respiration Rate O2 Delivery Device Adult Vent Blood Gas Modality Inspired O2 60.0 Tidal Volume PEEP 5 Sodium Potassium Chloride Carbon Dioxide BUN Creatinine Est GFR ( Amer) Est GFR (Non-Af Amer) BUN/Creatinine Ratio Glucose POC Glucose Calculated Osmolality Lactic Acid Calcium Venous Ioniz Calcium 0.80 L Phosphorus 7.1 H Magnesium 2.4 Total Bilirubin Direct Bilirubin Indirect Bilirubin AST ALT Alkaline Phosphatase Serum Total Protein Albumin Globulin Albumin/Globulin Ratio Random Vancomycin Specimen Rejected Person Notif of Crit 02/20/19 02/20/19 02/20/19 20:51 15:08 13:26 WBC RBC Hgb Hct MCV MCH MCHC RDW Plt Count MPV Immature Gran % Seg Neutrophils % Lymphocytes % Monocytes % Eosinophils % Basophils % Neutrophils # Lymphocytes # Monocytes # Eosinophils # Basophils # Nucleated RBCs/100 WBC Platelet Estimate Immature Plt Fraction Poikilocytosis PT INR Sample Site R Radial ABG pH 7.27 L ABG pCO2 49 H ABG pO2 115 H ABG HCO3 23 ABG Total CO2 24 ABG O2 Saturation 98 ABG Base Excess -5 L Johnny Test N/A Respiration Rate 18 O2 Delivery Device Adult Vent Blood Gas Modality VC Inspired O2 60.0 Tidal Volume 550 PEEP 5 Sodium Potassium Chloride Carbon Dioxide BUN Creatinine Est GFR ( Amer) Est GFR (Non-Af Amer) BUN/Creatinine Ratio Glucose POC Glucose 149 H 181 H Calculated Osmolality Lactic Acid Calcium Venous Ioniz Calcium Phosphorus Magnesium Total Bilirubin Direct Bilirubin Indirect Bilirubin AST ALT Alkaline Phosphatase Serum Total Protein Albumin Globulin Albumin/Globulin Ratio Random Vancomycin Specimen Rejected Person Notif of Crit 07/02/19 07/02/19 11:06 05:47 WBC RBC Hgb Hct MCV MCH MCHC RDW Plt Count MPV Immature Gran % Seg Neutrophils % Lymphocytes % Monocytes % Eosinophils % Basophils % Neutrophils # Lymphocytes # Monocytes # Eosinophils # Basophils # Nucleated RBCs/100 WBC Platelet Estimate Immature Plt Fraction Poikilocytosis PT INR Sample Site ABG pH ABG pCO2 ABG pO2 ABG HCO3 ABG Total CO2 ABG O2 Saturation ABG Base Excess Johnny Test Respiration Rate O2 Delivery Device Blood Gas Modality Inspired O2 Tidal Volume PEEP Sodium Potassium Chloride Carbon Dioxide BUN Creatinine Est GFR ( Amer) Est GFR (Non-Af Amer) BUN/Creatinine Ratio Glucose POC Glucose 294 H 239 H Calculated Osmolality Lactic Acid Calcium Venous Ioniz Calcium Phosphorus Magnesium Total Bilirubin Direct Bilirubin Indirect Bilirubin AST ALT Alkaline Phosphatase Serum Total Protein Albumin Globulin Albumin/Globulin Ratio Random Vancomycin Specimen Rejected Person Notif of Crit Preliminary micro results at discharge 02/19/19 13:50 Blood Culture - Preliminary Peripheral Venipuncture Gram Positive Cocci Gram Positive Rods 02/19/19 13:50 Blood Culture - Preliminary Peripheral Venipuncture Culture is incubating and being continuously monitored for growth. Final report to follow. - Impressions ITS Impressions Chest CT 02/19/19 00:00 IMPRESSION: Emphysema with right lower lobe pneumonia. Recommend follow-up until resolution. Left lower lobe atelectasis or developing infection. Left upper lobe scarring. Cardiomegaly with small pericardial effusion. D/ / 02/19/2019 15:16:18 Yanick Swartz MD / [facility] Interpreting Provider: Yanick Swartz MD Chest X-Ray 02/19/19 13:47 IMPRESSION: New right basilar airspace disease concerning for pneumonia. Follow-up chest radiographs recommended to ensure resolution. Interval resolution of left basilar pneumonia since the 2015 exam. D/ / Hai Torres MD / Hai Torres MD Interpreting Provider: Hai Torres MD Abdomen/Pelvis CT 02/19/19 13:55 IMPRESSION: 1. No acute process within the abdomen or pelvis within the limitations of a noncontrast study. 2. Cholelithiasis. 3. Stable prostatomegaly. 4. Mild right lower lobe mucus plugging with curvilinear and consolidative opacities within bilateral lung bases, most notable within the right lower lobe, representing either multifocal pneumonia or aspiration. Clinical correlation is advised. Please see today's chest CT report for further characterization. D/ / 02/19/2019 15:14:58 Liam Acosta MD / San[facility] Hooker Interpreting Provider: Liam Acosta MD Head CT 02/19/19 14:18 IMPRESSION: 1.No acute intracranial abnormality. D/ / Marquise Larsen MD / Marquise Larsen MD Interpreting Provider: Marquise Larsen MD Chest X-Ray 02/19/19 16:11 IMPRESSION: 1. Right basilar airspace disease again noted suggesting pneumonia 2. Endotracheal tube place just above the miley D/ / Tonio Francis MD / Tonio Francis MD Interpreting Provider: Tonio Francis MD Guidance Ultrasound 02/20/19 00:00 IMPRESSION: Successful ultrasound guided non-tunneled dialysis catheter placement. D/ / Sukhi Iverson MD / Sukhi Iverson MD Interpreting Provider: Sukhi Iverson MD Insertion Non-Tunneled Catheter 02/20/19 00:00 IMPRESSION: Successful ultrasound guided non-tunneled dialysis catheter placement. D/ / Sukhi Iverson MD / Sukhi Iverson MD Interpreting Provider: Sukhi Iverson MD Chest X-Ray 02/20/19 04:00 IMPRESSION: Increasing right basilar and new left basilar atelectasis and/or pneumonia. Left pleural effusion has developed. D/ / Uriah Wong MD / Uriah Wong MD Interpreting Provider: Uriah Wong MD Chest X-Ray 02/20/19 10:19 IMPRESSION: 1. The newly placed temporary right IJ hemodialysis catheter is appropriately positioned, with the distal tip in the central SVC. No pneumothorax. 2. Stable bibasilar pneumonia and small left pleural effusion. D/ / Liam Gray MD / Liam Gray MD Interpreting Provider: Liam Gray MD Echocardiogram 02/20/19 10:39 Impressions: Sinus tachycardia. LVEF 20%. LV basal segments are more dynamic in wall motion/thickening when compared to other segments suggesting possibility of a stress-induced cardiomyopathy. Recommend clinical correlation. Mild left ventricular diastolic dysfunction. Definity echo contrast was used. There is no LV thrombus. Right ventricle is dilated with moderate systolic dysfunction. Mild mitral regurgitation. Mild-moderate tricuspid regurgitation. Severe pulmonary hypertension. No prior Echo for comparison. Left Ventricular Wall Motion: Rest Echo Findings The apex, apical inferior, mid inferior, apical anterior, mid anterior, apical septal, mid inferior septal, basal inferior septal, apical lateral, mid anterior lateral, mid anterior septal and mid inferior lateral arreola were hypokinetic. All other wall segments showed normal motion. Findings: Study Quality * Technically adequate exam. ECG Findings * Sinus tachycardia. Left Ventricle * LVEF 20%. * Mild left ventricular diastolic dysfunction. * Definity echo contrast was used. * There is no LV thrombus. * LV chamber size and wall thickness measurements are normal. Right Ventricle * Right ventricle is dilated with moderate systolic dysfunction. Left Atrium * Normal left atrial size. Right Atrium * Moderately dilated right atrium. Aortic Valve * No aortic regurgitation. * Aortic valve not well visualized. * No aortic stenosis. Mitral Valve * Normal mitral valve structure. * No mitral stenosis. * Mild mitral regurgitation. Tricuspid Valve * Mildly thickened leaflets. * No tricuspid stenosis. * Mild-moderate tricuspid regurgitation. * Estimated RA pressure is 8 mmHg. * Estimated RVSP is 67 mmHg. * Severe pulmonary hypertension. Pulmonic Valve * Pulmonic valve is not well visualized. * No pulmonic stenosis. * No pulmonic regurgitation. Pulmonary Artery * Pulmonary artery not well visualized. Aorta * Normally sized aortic root. Pericardium * There is a trivial pericardial effusion present. * There is no echocardiographic evidence of tamponade. Interatrial Septum * No evidence of PFO by color Doppler. IVC * The IVC is not dilated. * < 50% respiratory change. Chest X-Ray 02/21/19 04:00 IMPRESSION: Grossly stable bilateral atelectasis and/or pneumonia with new right pleural effusion. D/ / Uriah Wong MD / Uriah Wong MD Interpreting Provider: Uriah Wong MD Date of admission: 02/19/19 19:00 Primary care physician: PCP NONE Consults: 02/19/19 14:58 Consult to Cardiology [CONS] Stat Comment: Consulting Provider: Cardiology Jessica Reason for Consult: NSTEMI Time Notified: 14:59 Call Completed: Yes 02/19/19 15:21 Consult to Nephrology [CONS] Stat Consulting Provider: Kidney Jessica/GEN/AMADEO/ANAIS Reason for Consult: Kidney failure Time Notified: 15:22 Call Completed: Yes 02/20/19 07:11 Consult to Interventional Radiology [CONS] Routine Consulting Provider: Radiology Interventional Cols Reason for Consult: Please eval for placement of a temporary HD catheter. Thank you. Call Completed: Yes 02/20/19 14:12 Consult to Organ Assembler [CONS] Routine Reason for SW Consult: family request for PoA discussion - Hospital Course Hospital course: Mr. Blankenship is a 58 year old male who presented to the emergency department on 02/19/19 with generalized malaise. The patient was found to have significant hepatorenal injury with lactic acidosis and septic shock likely secondary to pulmonary infection. The patient was started on broad-spectrum antibiotics, fluid resuscitation, vasopressors, and nephrology was consulted. The patient was intubated in the emergency department secondary to worsening respiratory status. He does have a known history of alcohol abuse but no known history of cirrhosis. No evidence of tylenol toxicity or viral hepatitis. The patient had Mariah continuous dialysis on 02/20/19 into 02/21/19 with slight improvement in his renal function but the patient persisted to have lactic acidosis, worsening overnight on 02/21/19. Liver enzymes continued to trend upwards and he was treated with IV prednisolone for alcoholic hepatitis. Cardiology consultation was obtained given his elevated troponin an echocardiogram was performed on 02/20/19 and showed significantly depressed ejection fraction down to 20%, these findings were not available prior to cardiopulmonary arrest. On morning of 02/21/19 right upper quadrant ultrasound to evaluate for portal vein thrombosis and plans for N acetylcysteine were initiated. He was found to have profound hypotension and required addition of second and third vasopressors. During morning rounds the patient degenerated into PEA and underwent ACLS resuscitation. ROSC was initially obtained but shortly thereafter the patient again went into ventricular fibrillation with multiple rounds of ACLS protocol provided without return of spontaneous circulation, then progressed into asystole. After approximately 30 minutes of attempts to resuscitate for second time, family was brought into the room and they requested halting all forms of resuscitation. Time of was called at 10:33 AM on 02/21/19. - Time Spent with Patient Total time spent providing and/or coordinating discharge services: Greater than 30 minutes Physical Examination Vital Signs: Vital Signs, Last 4 Hours Temp Pulse Resp BP Pulse Ox 02/21/19 09:45 22 58/38 99 02/21/19 09:00 114 22 113/98 02/21/19 08:00 98 F 117 22 63/53 02/21/19 07:15 18 101/82 99 Eyes: icteric ENT: oropharynx moist Inspection: other (no spontaneous respirations) Cardiovascular: other (no heart tones on auscultation) Integumentary: normal Extremities: no cyanosis Musculoskeletal: no deformities
--- NOTE | 2019-02-21 12:34 | Nephrology Progress Note ---
Date of Encounter: 02/21/19 Time of Encounter: 09:10 - Assessment and Plan (1) ROD (acute kidney injury) Status: Acute He continues to have severe hyperkalemia despite the optimal modality of CVVHDF. His BPs are still quite low and so no fluid removal with ultrafiltration at this; Mariah settings were adjusted earlier in the AM. His edema is worsening, and the goal is ultimately balance if volume status, and originally yesterday he was able to met a net-zero ultrafiltration to balance his I/Os. However d/t low BP this AM, he is now on absolute zero UF. Since he remain so hyperkalemic, this suggests he is very catabolic; and to help adjust for the ongoing hyperkalemia, I recommend increasing the diffusion/convection with Prismasate and Replacement fluid of 1500 and 1500, which would optimze clearance without affecting BPs. He has not been on citrate regional A/C d/t the national shortage of IV calcium but his filter transmembrane pressures hare intact and have been working relatively well without the citrate. Due to his severe multi-organ failure, I communicated with the pt's daughter that he has a very high chance of mortality. She voiced understanding, and I answered all her questions. This critically ill pt required a very high degree of E/M and MDM. Addendum: a few hours later the pt continued to worse and had a long Code Blue event, and has now . (2) Hyperkalemia Status: Acute (3) Elevated LFTs Status: Acute (4) Alcohol abuse Status: Acute (5) Septic shock Status: Acute (6) Proteinuria Status: Acute Qualifiers: Proteinuria type: persistent Qualified Code(s): R80.1 - Persistent proteinuria, unspecified (7) Hyperphosphatemia Status: Acute (8) Lactic acidosis Status: Acute Subjective Principal diagnosis: ROD Interval history: Delayed entry note. 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 I updated the pt's daughter and answered all her questions. Objective - Vital Signs Vital signs: Vital Signs Temp Pulse Resp BP Pulse Ox 02/21/19 09:45 22 58/38 99 02/21/19 09:00 114 22 113/98 02/21/19 08:00 98 F 117 22 63/53 02/21/19 07:15 18 101/82 99 02/21/19 07:00 120 18 101/82 02/21/19 06:00 115 18 110/86 02/21/19 05:51 18 100 02/21/19 05:00 105 18 114/75 02/21/19 04:00 97 18 77/53 99 02/21/19 03:37 18 97 02/21/19 03:00 97.5 F L 97 18 109/81 99 02/21/19 02:00 93 18 97/67 98 02/21/19 01:12 18 97 02/21/19 01:00 88 18 106/77 97 02/20/19 23:28 18 98 02/20/19 23:00 97.5 F L 86 18 101/90 100 02/20/19 22:00 87 18 121/74 96 02/20/19 21:31 18 98 02/20/19 21:00 90 18 126/96 97 02/20/19 20:00 97.6 F 95 18 114/88 98 02/20/19 19:20 18 154/107 93 02/20/19 19:00 94 18 154/107 95 02/20/19 18:00 76 18 89/41 96 02/20/19 17:45 18 116/92 94 02/20/19 17:00 74 18 116/92 94 02/20/19 16:00 82 18 75/43 95 02/20/19 15:50 18 81/64 98 02/20/19 15:00 97 F L 80 18 88/59 96 02/20/19 14:00 82 18 84/67 97 02/20/19 13:30 18 95 02/20/19 13:00 83 18 90/63 96 Intake and Output 02/20/19 02/21/19 02/21/19 23:59 07:59 15:59 Intake Total 647 / 7443.2 889 / 1846 957 / 1846 Output Total 530 / 1590 691 / 814 123 / 814 Balance 117 / 5853.2 198 / 1032 834 / 1032 Intake: IV Fluids 647 / 7443.2 889 / 1846 957 / 1846 PrismaSATE BGK 4/2.5 5,000 ML @ 0 / 0 1000 mls/hr CRRT CONT [facility] Rx#: [id number] FentaNYL (PF) 1,000 MCG In 0.9 89 / 300 169 / 199 30 / 199 % Sodium Chloride 80 ML @ 50 MCG/HR 5 mls/hr IVC [facility] Rx #:[id number] Versed 50 MG In 0.9 % Sodium 48 / 355 104 / 126 22 / 126 Chloride 90 ML @ 2 MG/HR 4 mls/ hr IVC CONT [facility] Rx#:[id number] Levophed 8 MG In Dextrose 5% 352 / 498 409 / 516 107 / 516 250 ML @ 8 MCG/MIN 15.48 mls/hr IVC [facility] Rx#:[id number] Levophed 16 MG In Dextrose 5% 3 / 3 500 ML @ 8 MCG/MIN 15.48 mls/hr IVC CONT [facility] Rx#:[id number] Phenylephrine 50 MG In Dextrose 75 / 75 209 / 209 5% 250 ML @ 100 MCG/MIN 30.6 mls/hr IVC CONT [facility] Rx#: [id number] ALBURX 5% 12.5 gm In 250 ml @ 500 / 500 60 mls/hr IVPB DAILY [facility] Rx#: [id number] Calcium Gluconate 1gm/50mL 1 gm 100 / 100 In 50 ml @ 50 mls/hr IVPB Q6HR PRN Rx#:[id number] Zosyn 3.375 GM In 0.9 % Sodium 83 / 100 107 / 168 61 / 168 Chloride (Mini-Bag +) 100 ML @ 25 mls/hr IVPB Q8H [facility] Rx#: [id number] Vitamin B-1 100 MG Folvite 1 MG 25 / 25 In Dextrose 5% 50 ML @ 50.196 mls/hr IVPB DAILY [facility] Rx#: [id number] Oral 0 / 0 Output: Catheter 23 / 237 5 / 5 0 / 5 Gastric Drainage 100 / 600 0 / 0 Fluid Removed by Prismaflex 407 / 753 686 / 809 123 / 809 Other: Weight 76 kg 76 kg 76 kg Blood Glucose* 141 122 78 Patient Weight 02/21/19 23:59 Weight 76 kg - General Appearance General appearance: Present: severe distress, sedated on ventilator, intubated EENT: Present: ATNC, mucous membranes dry, scleral icterus Neck: Present: no JVD, supple Respiratory: Present: no kyphosis, course breath sounds Cardiology: Present: edema (Trace to 1+ pedal edema bilaterally), normal S1, normal S2 Dialysis Vascular Access: Venous Catheter (temporary HD catheter was in place with a well adhered Tegaderm; no exit site erythema noted) Gastrointestinal: Present: normoactive bowel sounds, no tenderness, no guarding, distended Integumentary: Present: cool/clammy Neurologic: Present: obtunded Musculoskeletal: Present: no cyanosis, no clubbing - Lab 02/21/19 04:15 02/21/19 04:15 Most recent lab results 02/21/19 02/21/19 04:15 05:51 ABG pH 7.12 L* ABG pCO2 56 H ABG pO2 105 H ABG HCO3 18 L ABG O2 Saturation 95 Calcium 7.0 L Phosphorus 7.2 H Magnesium 2.5 Consult Discharge Plan - Plan Referrals: NONE,PCP [Primary Care Provider] -
--- NOTE | 2019-02-21 14:28 | Electrocardiograph Report ---
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
== END 2019-02-21 10:33 | disposition expired | DRG 871 ==
LOC: EMEROOARM 13:39 → ICNU 19:00
PROVIDERS: ADMIT Internal Medicine Pulmonary Disease; ATTEND Internal Medicine Pulmonary Disease